=== PATIENT | male | born 1970 | race Caucasian/White ===

== ENCOUNTER 2019-01-07 18:47 | Emergency (ER) | payer MEDICAID, OTHER, SELFPAY ==
[~2019-01-07] VITALS: Ht 190.5 cm; Wt 97.3 kg
[2019-01-07 19:33] LABS: APPEARANCE, URINE CLEAR (CLEAR); BACTERIA, URINE AUTO NEGATIVE (NEGATIVE); BILIRUBIN, URINE AUTO 1+ (NEGATIVE); BLOOD, URINE BLOOD 1+ (NEGATIVE); COLOR, URINE AMBER (YELLOW); GLUCOSE, URINE (UA) AUTO 1+ mg/dL (NEGATIVE); KETONE, URINE AUTO NEGATIVE (NEGATIVE); LEUKOCYTE ESTERASE, URINE AUTO NEGATIVE (NEGATIVE); MUCUS, URINE SMALL (NEGATIVE); NITRITE, URINE AUTO NEGATIVE (NEGATIVE); PROTEIN, URINE AUTO 1+ mg/dL (NEGATIVE); RBC, URINE AUTO 3 /HPF (0-3); SQUAMOUS EPITHELIAL CELL UR AU 0 /HPF (0-6); WBC, URINE AUTO 1 /HPF (0-3)
[2019-01-07] MEDS ORDERED: ONDANSETRON 4MG/2ML VIAL (J2405) IV ONE (19:45)
[2019-01-07] MEDS ORDERED: KETOROLAC 30 MG/ML VIAL (J1885) IV ONE (19:45)
[2019-01-07 19:57] LABS: INFLUENZA A AMPLIFICATION NEGATIVE (NEGATIVE); INFLUENZA B AMPLIFICATION NEGATIVE (NEGATIVE)
[2019-01-07 20:55] LABS: HEMATOCRIT 44.9 % (42.0-52.0); HEMOGLOBIN 15.3 g/dl (13.5-17.5); MEAN CORPUSCULAR HEMOGLOBIN 29.9 pg (27.0-33.0); MEAN CORPUSCULAR HGB CONC 34.1 g/dl (32.0-36.5); MEAN CORPUSCULAR VOLUME 87.7 fl (80.0-96.0); PLATELET COUNT, AUTOMATED 137 10^3/uL (150-450); RED BLOOD COUNT 5.12 10^6/uL (4.30-6.10); WHITE BLOOD COUNT 4.7 10^3/uL (4.0-10.0)
[2019-01-07] MEDS ORDERED: diphenhydrAMINE INJ 50MG/ML VIAL (J1200) IV ONE (21:00)
[2019-01-07] MEDS ORDERED: METOCLOPRAMIDE 10 MG TAB PO ONE (21:00)
[2019-01-07] MEDS ORDERED: SUMAtriptan SUCCINATE 6 MG/0.5 ML VIAL SC ONE (21:00)
[2019-01-07 21:12] LABS: BLOOD UREA NITROGEN 18 MG/DL (7-18); CALCIUM LEVEL 8.7 MG/DL (8.5-10.1); CARBON DIOXIDE LEVEL 27 MEQ/L (21-32); CHLORIDE LEVEL 101 MEQ/L (98-107); CREATININE FOR GFR 1.28 MG/DL (0.70-1.30); GLOMERULAR FILTRATION RATE > 60.0 (>56); GLUCOSE, FASTING 96 MG/DL (70-100); POTASSIUM SERUM 4.9 MEQ/L (3.5-5.1); SODIUM LEVEL 134 MEQ/L (136-145)
[2019-01-07 21:26] LABS: ATYPICAL LYMPH 4 % (0-5); BASOPHILS 1 % (0-4); EOSINOPHILS 4 % (0-5); LYMPHOCYTES 33 % (16-52); MONOCYTES 12 % (0-8); NEUTROPHILS 46 % (35-75)
[2019-01-07 21:27] LABS: PLATELET ESTIMATE DECREASED (NORMAL)
[2019-01-07 22:12] LABS: CPK CREATINE PHOSPHOKINASE 178 U/L (39-308); MB/CK RELATIVE INDEX 1.74 (< OR =4); TROPONIN I < 0.02 NG/ML (< 0.10)
[2019-01-08 00:30] VITALS: BP 136/86
--- NOTE | 2019-01-08 05:46 | ECGEPIP ---
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
--- NOTE | 2019-01-08 08:31 | REP ---
Left ankle: Four views. History: Chronic pain and overlying skin lesion. Findings: Four views of the left ankle demonstrate anteromedial soft tissue swelling. Ankle mortise is intact. No periosteal reaction or bony erosive changes seen. No soft tissue gas or opaque foreign body noted. There is a large plantar calcaneal spur. Bones, joints, and soft tissues are otherwise unremarkable. Impression: Soft-tissue swelling anteriorly and medially just above the ankle. Large plantar calcaneal spur. Otherwise negative. Electronically Signed by Damien Aguilar MD 01/08/2019 08:22 A
== END 2019-01-08 00:21 | disposition home or self-care (01) ==
LOC: M ED 18:47
DX: D69.6 Thrombocytopenia, unspecified (principal); R80.9 Proteinuria, unspecified; E87.1 Hypo-osmolality and hyponatremia; R11.0 Nausea; R51 Headache; L98.9 Disorder of the skin and subcutaneous tissue, unspecified; M77.32 Calcaneal spur, left foot; Z72.0 Tobacco use
CPT/HCPCS: 73610; 80048; 81001; 82550; 82553; 85025; 87502; 93005; 96374; 96375; 99284; J1200; J1885; J2405

== ENCOUNTER 2019-01-10 20:31 | Emergency (ER) | payer MEDICAID, SELFPAY ==
[~2019-01-10] VITALS: Ht 190.5 cm; Wt 100.0 kg
[2019-01-10] MEDS ORDERED: ALBU17IN2 INH (22:23)
--- NOTE | 2019-01-10 22:23 | REP ---
Clinical: Cough . Comparison: 05/12/2015 . Technique: PA and lateral. Findings: The mediastinum and cardiac silhouette are normal. The lung watson are clear and without acute consolidation, effusion, or pneumothorax. The skeletal structures are intact and normal. Impression: 1. No acute cardiopulmonary process. Electronically Signed by José Larose MD 01/10/2019 10:15 P
[2019-01-10 22:32] VITALS: BP 119/81; O2SAT 97
--- NOTE | 2019-01-11 10:25 | ECGEPIP ---
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
== END 2019-01-10 22:38 | disposition home or self-care (01) ==
LOC: M ED 20:31
DX: R05 Cough (principal); R10.9 Unspecified abdominal pain; R51 Headache; F10.10 Alcohol abuse, uncomplicated; F17.210 Nicotine dependence, cigarettes, uncomplicated

== ENCOUNTER 2019-03-04 00:46 | Emergency (ER) | payer SELFPAY ==
[~2019-03-04] VITALS: Ht 190.5 cm; Wt 100.0 kg
[2019-03-04 00:46] VITALS: BP 172/92
[~2019-03-04 00:46] MED LIST: ALBU17IN2 INH
== END 2019-03-04 01:44 | disposition left against medical advice (07) ==
LOC: M ED 00:46
DX: Z53.29 Procedure and treatment not carried out because of patient's decision for other reasons (principal)

== ENCOUNTER 2019-03-15 04:45 | Observation (INO) | payer MEDICAID, SELFPAY ==
[2019-03-15] VITALS (8 sets, daily range): BP systolic 139–178; BP diastolic 92–120
[~2019-03-15] VITALS: Ht 190.5 cm; Wt 96.3 kg
[2019-03-15] MEDS ORDERED: ACETAMINOPHEN TAB 650MG DOSE (2X325MG) PO PRN (09:30)
[2019-03-15] MEDS ORDERED: ONDANSETRON 4MG/2ML VIAL (J2405) IV PRN (09:30)
[2019-03-15] MEDS ORDERED: NORCO, ANEXSIA 5/325MG TABLET (HYDROcodone/ACETAMINOPHEN) PO PRN (09:30)
[2019-03-15] MEDS: PANTOPRAZOLE 40MG TAB (PROTONIX) PO SCH (10:58)
[2019-03-15] MEDS: SENOKOT S TAB PO SCH ×2 (10:58→20:29)
[2019-03-15] MEDS: amLODIPine 10 MG TAB PO SCH (10:58)
[2019-03-15] MEDS: AUGMENTIN 875 MG TAB PO SCH ×2 (10:59→20:29)
--- NOTE | 2019-03-15 11:07 | CR.PDOC ---
General Date of Consultation: March 15, 2019 Consultation CONSULTATION REPORT FOR: Dr Cast REASON FOR CONSULTATION: Ascending AA Vascular Surgery. Dr Stoll. HPI: 48year oldM transferred from [facility] related to acute cholecystitis to the surgical service at [facility]. The pt states he does not follow with a PCP, does not take any medication at home. The pt was evaluated at [facility] 03/15/19 related to abdominal pain, nausea and vomiting. The pt had reported RUQ pain, cramping, worse with food and movement, poor appetite. No diarrhea. Vascular Surgery is consulted regarding Ascending AA. Denies any fevers, chills, weakness, fatigue, Headache, Chest Pain, Shortness of breath, cough, palpitations, abdominal pain, N/V/D or changes in bowel or bladder habits. PMHx: Uncontrolled HTN Ascending AA Overweight BMI 28.1 cholelithiasis PSHX: back surgery SOCHX: Tobacco use: 1 ppd ETOH: states 1 case of beer per month. Illicit Drugs: Denies FAMHX: Mother: Alive, unknown Father: Alive, unknown Siblings: 2 sisters Alive, well ROS: As noted in HPI, otherwise 11pt ROS of systems reviewed and remarkable only for BP at [facility] noted to be 190/100. At time of transfer 169/118. This AM 174/110. PE: GEN: 48yoM, appears stated age. Well-nourished, well developed. No acute distress. Alert and oriented x 3. Pleasant, interactive. HEENT: Normocephalic, atraumatic. Sclera are nonicteric. Conjunctiva without injection. No facial asymmetry. Moist mucous membranes. CHEST: Regular rate and rhythm, +S1, +S2 LUNGS: Clear to auscultation bilaterally. No wheezes, rales, or rhonchi. [place] thing appears symmetric and easy. ABD: Round, soft, RUQ TTP, non-distended. +Bowel sounds throughout. EXT: Pulses 2+ bilaterally dorsalis pedis and radial. No lower extremity edema appreciated. SKIN: [place], dry, warm. Capillary refill <2sec. No rashes. NEURO: Alert and oriented x 3. Cranial nerves III-XII are intact. No focal deficits appreciated. CXR 01/10/19 1. No acute cardiopulmonary process. Electronically Signed by José Larose MD 01/10/2019 10:[address] A/P cholelithiasis/cholecystitis. [facility] CTA chest 4.6 cm Ascending AA. No PE. [facility] EKG NSR 62 bpm. A&P: 1. Ascending AA. [facility] CTA chest 4.6 cm. No previous imaging available. The pt is reviewed and discussed with Dr Stoll. Surveillance would be recommended at this time. Would recommend BP control. Mgmt as per Hospitalist service. Would recommend consideration of statin therapy. Request TTE to further asses, obtain baseline. Would recommend to re asses with TTE in 6 months to determine stability, then biannually. 2. Uncontrolled HTN. No meds as outpt. Mgmt as per Hospitalist svc. 3. Cholelithiasis. Mgmt as per Surgical service. From a vascular standpoint would be able to proceed with elective cholecystectomy, if needed, once blood pressure is controlled. Thank you for your consultation. We will continue to follow along with you. Vital Signs/I&O Vital Signs Date Time Temp Pulse Resp B/P (MAP) Pulse Ox O2 Delivery O2 Flow Rate FiO2 03/15/19 06:05 97.7 77 18 174/110 (131) 60 Laboratory Data Labs 24H no new labs available Allergies Coded Allergies: No Known Allergies (Verified , 01/10/19) Home Medications No Active Prescriptions or Reported Meds Luiza Lofton March 15, 2019 09:11
--- NOTE | 2019-03-15 17:54 | HPE ---
DATE OF ADMISSION: 03/15/2019 REASON FOR ADMISSION: Right upper quadrant pain, acute cholecystitis, cholelithiasis. HISTORY OF THE PRESENT ILLNESS: The patient is a 48-year-old male. He has had problems with right upper quadrant pain after meals for the past 2 weeks. He was initially seen here, discharged home. He had pains again, a few days later he went to the [place] [facility]. They transferred him to [place] where he was admitted and watched for 2 days and then discharged home again. This was about 8 days ago. When he was discharged from there, he had no follow up with any surgeons, no plan for any surgery. He was not discharged on any medications. Apparently he did have issues with hypertension and that is why they had held off on doing his surgery during that last inpatient stay, but again, he was never set up with any followup for a primary and no blood pressure medications or antibiotics upon discharge. Since then, he has had about two more days of pain in the right upper quadrant. This last episode started yesterday after having some [employer] [place]. He was never advised to stay on low-cholesterol, low-fat diet, as well, so that was likely the result of his symptoms starting yesterday. He went back to [facility] (ER), had elevated liver enzymes; however, they were improved from the week prior. He also has a CT scan still showing large stones as well as wall thickening and fluid around the gallbladder, concerning for acute cholecystitis. They also did a CTA during this hospitalization at [place], which showed an ascending thoracic aortic aneurysm at 4.6 cm, which is a new finding for him and because of his symptoms, he was transferred here and [facility] for [facility]olecystitis. Currently his pain is completely resolved. He has no nausea, vomiting. No fevers or chills. Pain is gone. He only had the pain after his meal yesterday, and he only gets it a couple times a week. No fevers. No changes in bowel movements. No trauma to the abdomen. No changes in medications. He does apparently have a history of hypertension and that he has not been on any medications for, and has never been officially diagnosed either since he does not follow up with any primary. PAST MEDICAL HISTORY: Hypertension. Cholelithiasis. Back pain. PAST SURGICAL HISTORY: Lumbar back surgery. ALLERGIES: None. HOME MEDICATIONS: None. SOCIAL HISTORY: He smokes a pack a day and drinks socially. Denies any drugs. FAMILY HISTORY: Noncontributory. REVIEW OF SYSTEMS: Pertinent positives and negatives as stated in the history of the present illness. PHYSICAL EXAMINATION: General: Alert and oriented times three. No acute distress. Vital Signs: Temperature 98, pulse 63, respirations 18, blood pressure 178/120. HEENT: Pupils equally round and react to light and accommodation. Heart: S1, S2, regular rate and rhythm. Lungs: Clear to auscultation bilaterally. Abdomen: Soft, nontender, nondistended. No ventral hernias. Extremities: No clubbing, cyanosis or edema. LABORATORY: Labs were reviewed from [facility], and there is elevated AST, ALT. Alkaline phosphatase and bilirubin are within normal limits as well as a normal white count. IMAGING STUDIES: CT scan does show thickened gallbladder wall with fluid around it and two large calcified gallstones. ASSESSMENT AND PLAN: The patient is a 48-year-old male admitted from [facility] and transferred here due to acute cholecystitis with cholelithiasis. He also was found to have hypertension and an ascending thoracic aortic aneurysm at 4.6 cm. I have asked the hospitalists to be on consult to get him started on some blood pressure management. Also, the hospitalist has requested the vascular surgeon to evaluate and give recommendations as far as the aneurysm is concerned. At this point, his aneurysm is not large enough to require any type of surgical intervention. We will keep his blood pressure controlled and likely repeat imaging in about 6 months. During this stay, we will get a transesophageal echocardiogram (SARITHA) to further evaluate the aortic root and to use as a baseline for further imaging. As far as the cholecystitis is concerned, he will require surgery. I explained to him that he has had this going on for about 2 weeks now and has not had proper treatment for it yet. Therefore, we will plan to get him on antibiotics and low-fat, low-cholesterol diet. If he can tolerate that for a couple of weeks to allow the inflammation to subside, then we will plan for elective surgery outpatient in a couple of weeks. However, if the pain does not improve over the next 24 hours, and he is not able to tolerate a diet, then we will plan for more urgent procedure with the risk of this turning into a complicated surgery. He understands that. We placed him on a low-cholesterol diet today. I will see how he is doing in the morning. If his pain is okay and he is tolerating a diet in the morning, I will discharge him home. If he is having significant pains, then we will keep him nothing by mouth after midnight and plan for surgery tomorrow.
--- NOTE | 2019-03-15 19:14 | CR.PDOC ---
General Date of Consultation: March 15, 2019 Referring Provider: CARLITA NOVAK MD Consultation REASON FOR CONSULTATION/CHIEF COMPLAINT: Management of hypertension. HISTORY OF PRESENT ILLNESS: . 48-year-old male was admitted from the [facility] due to acute cholecystitis. The patient states that he was recently admitted at [facility] for 4 days for treatment of the same, and return was recommended to have surgery done in a few weeks and follow-up outpatient. However, the patient's pain worsened and he has been transferred here for further surgical evaluation. During workup, a CTA of the chest revealed a 4.6 cm ascending aortic aneurysm. The patient denies any complaints of fevers, chills, chest pain, palpitations, abdominal discomfort, shortness of breath, or any nausea/vomit ing/diarrhea. The hospitalist team has been consulted to aid in the medical management of the patient's hypertension, as the patient has not followed with a primary care physician, and is not on any medications. ALLERGIES: Please see below. HOME MEDICATIONS: Please see below. PAST MEDICAL HISTORY: As noted in HPI PAST SURGICAL HISTORY: L5-S1 laminectomy/discectomy in 1999 SOCIAL HISTORY: Has smoked 1 pack per day of tobacco for the past 30+ years Occasionally drinks alcohol Occasionally snorts methamphetamines every few weeks REVIEW OF SYSTEMS: 10 point review of systems negative unless otherwise specified in HPI PHYSICAL EXAMINATION: VITAL SIGNS: Please see below. GENERAL APPEARANCE: . Awake, alert, in no acute distress HEENT: . Normocephalic, atraumatic RESPIRATORY: . Clear to auscultation bilaterally CARDIOVASCULAR: . Normal rate, normal S1, S2 ABDOMEN: . Soft, nontender, nondistended EXTREMITIES: . No erythema, no tenderness LABORATORY DATA: Please see below. ASSESSMENT/PLAN: Uncontrolled HTN Patient is not on any medications as an outpatient We will start the patient on Norvasc 10mg, and add other anti-hypertensives depending on the patient's response Patient counseled at length about the need to adhere to a 2 g low sodium diet, medications as prescribed, and to follow-up with a primary care physician regularly to monitor his blood pressure. We will help set the patient up with a primary care physician provider as well. Ascending aortic aneurysm CT angiogram of the chest here revealed an ascending aortic aneurysm of 4.6 cm No previous imaging available Patient is asymptomatic at this time. 2-D echocardiogram ordered The patient will need better blood pressure control moving forward We will defer further management as per vascular surgery Cholecystitis Augmentin ordered as per general surgery The patient has been started on a low-fat, low-cholesterol diet Plans for Surgical intervention in the future as per Dr. Cast DVT prophylaxis OOB, Ambulation Vital Signs/I&O Vital Signs Date Time Temp Pulse Resp B/P (MAP) Pulse Ox O2 Delivery O2 Flow Rate FiO2 03/15/19 16:00 99.0 73 17 140/98 (112) 94 Allergies Coded Allergies: No Known Allergies (Verified , 01/10/19) Home Medications No Active Prescriptions or Reported Meds CARLITA NOVAK MD March 15, 2019 19:14
--- NOTE | 2019-03-15 22:58 | ECHO ---
DATE OF PROCEDURE: 03/15/2019 REFERRING INDIVIDUAL: Luiza Lofton, Physician [employer] Salesperson INDICATION: Thoracic aortic aneurysm without rupture. HEIGHT: 185 cm WEIGHT: 102 kg 2D MEASUREMENTS: Aortic root at the sinus of Valsalva: 3.9 cm Proximal ascending aorta: 4.1 cm Ventricular septum: 1.36 cm Posterior wall: 1.61 cm Left ventricle diastole: 4.0 cm Left atrium: 3.6 cm Aortic annulus: 2.3 cm Inferior vena cava: 1.8 cm (more than 50% respiratory variation). CVP estimated to be 5-10 mmHg. DOPPLER MEASUREMENTS: Mild aortic regurgitation. No aortic stenosis. Aortic valve velocity: 131 cm/s LVOT velocity: 85.7 cm/s Very mild mitral regurgitation. Mitral E velocity: 66.0 cm/s Mitral A velocity: 80.5 cm/s Mitral deceleration time: 264 ms No tricuspid regurgitation. Estimated pulmonary artery systolic pressure: 31 mmHg. MITRAL ANNULAR TISSUE DOPPLER: E prime septal: 5.2 cm/s E prime lateral: 5.1 cm/s DESCRIPTION: Rhythm was sinus. Image quality was fair. No pericardial effusion. This was a 2D, M-mode, color flow Doppler and pulse wave Doppler examination and included mitral annular tissue Doppler. CONCLUSIONS: 1. Mild dilatation of the aortic root at the level of the sinus of Valsalva (3.9 cm) and proximal ascending aorta (4.1 cm). No coarctation of the aorta. 2. Moderate concentric left ventricle hypertrophy. Normal regional left ventricular (LV) wall motion and wall thickening. Normal LV systolic function. Left ventricular ejection fraction (LVEF) 60% by visual estimate. Grade 1 LV diastolic dysfunction (impaired relaxation filling pattern). 3. Mild aortic valve sclerosis of a 3-cusp aortic valve. Mild aortic regurgitation. 4. Mild mitral annular calcification. Very mild mitral regurgitation. 5. Otherwise normal appearing echocardiogram Doppler findings. ADDITIONAL COMMENTS AND RECOMMENDATIONS: Suggest a followup echocardiogram Doppler in 1 year.
[2019-03-16 05:54] LABS: HEMATOCRIT 44.4 % (42.0-52.0); HEMOGLOBIN 15.3 g/dl (13.5-17.5); MEAN CORPUSCULAR HEMOGLOBIN 30.7 pg (27.0-33.0); MEAN CORPUSCULAR HGB CONC 34.5 g/dl (32.0-36.5); PLATELET COUNT, AUTOMATED 208 10^3/uL (150-450); RED BLOOD COUNT 4.99 10^6/uL (4.30-6.10); WHITE BLOOD COUNT 5.5 10^3/uL (4.0-10.0)
[2019-03-16 06:00] VITALS: BP 132/91
[2019-03-16 06:12] LABS: ALBUMIN 3.2 GM/DL (3.2-5.2); ALT/SGPT 374 U/L (12-78); BILIRUBIN,TOTAL 0.5 MG/DL (0.2-1.0); BLOOD UREA NITROGEN 19 MG/DL (7-18); CALCIUM LEVEL 9.2 MG/DL (8.5-10.1); CARBON DIOXIDE LEVEL 26 MEQ/L (21-32); CHLORIDE LEVEL 105 MEQ/L (98-107); CREATININE FOR GFR 1.18 MG/DL (0.70-1.30); GLOMERULAR FILTRATION RATE > 60.0 (>56); GLUCOSE, FASTING 86 MG/DL (70-100); POTASSIUM SERUM 4.1 MEQ/L (3.5-5.1); SODIUM LEVEL 137 MEQ/L (136-145); TOTAL PROTEIN 8.4 GM/DL (6.4-8.2)
[2019-03-16 08:14] VITALS: BP 148/90
[2019-03-16] MEDS: PANTOPRAZOLE 40MG TAB (PROTONIX) PO SCH (08:14)
[2019-03-16] MEDS: amLODIPine 10 MG TAB PO SCH (08:14)
[2019-03-16] MEDS: AUGMENTIN 875 MG TAB PO SCH (08:14)
[2019-03-16] MEDS: SENOKOT S TAB PO SCH (08:14)
--- NOTE | 2019-03-16 09:46 | IPNPDOC ---
Date Seen The patient was seen on 03/16/19. Progress Note CONSULTATION REPORT FOR: Dr Cast REASON FOR CONSULTATION: Ascending AA Vascular Surgery. Dr Stoll. HPI: 48year oldM transferred from [facility] related to acute cholecystitis to the surgical service at [facility]. The pt states he does not follow with a PCP, does not take any medication at home. The pt was evaluated at [facility] 03/15/19 related to abdominal pain, nausea and vomiting. The pt had reported RUQ pain, cramping, worse with food and movement, poor appetite. No diarrhea. Vascular Surgery is consulted regarding Ascending AA. Denies any fevers, chills, weakness, fatigue, Headache, Chest Pain, Shortness of breath, cough, palpitations, abdominal pain, N/V/D or changes in bowel or bladder habits. PMHx: Uncontrolled HTN Ascending AA Overweight BMI 28.1 cholelithiasis PSHX: back surgery SOCHX: Tobacco use: 1 ppd ETOH: states 1 case of beer per month. Illicit Drugs: Denies FAMHX: Mother: Alive, unknown Father: Alive, unknown Siblings: 2 sisters Alive, well ROS: As noted in HPI, otherwise 11pt ROS of systems reviewed and remarkable only for BP at [facility] noted to be 190/100. At time of transfer 169/118. This AM 174/110. PE: GEN: 48yoM, appears stated age. Well-nourished, well developed. No acute distress. Alert and oriented x 3. Pleasant, interactive. HEENT: Normocephalic, atraumatic. Sclera are nonicteric. Conjunctiva without injection. No facial asymmetry. Moist mucous membranes. CHEST: Regular rate and rhythm, +S1, +S2 LUNGS: Clear to auscultation bilaterally. No wheezes, rales, or rhonchi. Breathing appears symmetric and easy. ABD: Round, soft, RUQ TTP, non-distended. +Bowel sounds throughout. EXT: Pulses 2+ bilaterally dorsalis pedis and radial. No lower extremity edema appreciated. SKIN: [place], dry, warm. Capillary refill <2sec. No rashes. NEURO: Alert and oriented x 3. Cranial nerves III-XII are intact. No focal deficits appreciated. CXR 01/10/19 1. No acute cardiopulmonary process. Electronically Signed by José Larose MD 01/10/2019 10:[address] [facility] [address] A/P cholelithiasis/cholecystitis. [facility] CTA chest 4.6 cm Ascending AA. No PE. [facility] EKG NSR 62 bpm. TTE 03/15/19 CONCLUSIONS: 1. Mild dilatation of the aortic root at the level of the sinus of Valsalva (3.9 cm) and proximal ascending aorta (4.1 cm). No coarctation of the aorta. 2. Moderate concentric left ventricle hypertrophy. Normal regional left ventricular (LV) wall motion and wall thickening. Normal LV systolic function. Left ventricular ejection fraction (LVEF) 60% by visual estimate. Grade 1 LV diastolic dysfunction (impaired relaxation filling pattern). 3. Mild aortic valve sclerosis of a 3-cusp aortic valve. Mild aortic regurgitation. 4. Mild mitral annular calcification. Very mild mitral regurgitation. 5. Otherwise normal appearing echocardiogram Doppler findings. ADDITIONAL COMMENTS AND RECOMMENDATIONS: Suggest a followup echocardiogram Doppler in 1 year. A&P: 1. Ascending AA. [facility] CTA chest 4.6 cm. TTE 03/15/19 Mild dilatation of the aortic root at the level of the sinus of Valsalva (3.9 cm) and proximal ascending aorta (4.1 cm). No previous imaging available. The pt is reviewed and discussed with Dr Stoll. Surveillance would be recommended at this time. Would recommend BP control. Mgmt as per Hospitalist service. Would recommend consideration of statin therapy. TTE as baseline as above. Would recommend to re asses with TTE in 6 months to determine stability, then biannually. 2. Uncontrolled HTN. No meds as outpt. Mgmt as per Hospitalist svc. 3. Cholelithiasis. Mgmt as per Surgical service. From a vascular standpoint would be able to proceed with elective cholecystectomy, if needed, once blood pressure is controlled. VS, I&O, 24H, Fishbone Vital Signs/I&O Vital Signs Date Time Temp Pulse Resp B/P (MAP) Pulse Ox O2 Delivery O2 Flow Rate FiO2 03/16/19 08:14 88 148/90 03/16/19 06:00 96.9 16 93 I&O- Last 24 Hours up to 6 AM 03/16/19 06:00 Intake Total 1090 ml Output Total 800 ml Balance 290 ml Laboratory Data 24H LABS Laboratory Tests 2 03/16/19 05:13: Nucleated Red Blood Cells % (auto) 0.0, Anion Gap 6L, Glomerular Filtration Rate > 60.0, Blood Urea Nitrogen 19H, Creatinine 1.18, Sodium Level 137, Potassium Level 4.1, Chloride Level 105, Carbon Dioxide Level 26, Calcium Level 9.2, Aspartate Amino Transf (AST/SGOT) 135H, Alanine Aminotransferase (ALT/SGPT) 374H, Alkaline Phosphatase 55, Total Bilirubin 0.5, Total Protein 8.4H, Albumin 3.2, Albumin/Globulin Ratio 0.62L CBC/BMP Laboratory Tests 03/16/19 05:13 Red Blood Count 4.99, Mean Corpuscular Volume 89.0, Mean Corpuscular Hemoglobin 30.7, Mean Corpuscular Hemoglobin Concent 34.5, Red Cell Distribution Width 13.9, Calcium Level 9.2, Aspartate Amino Transf (AST/SGOT) 135 H, Alanine Aminotransferase (ALT/SGPT) 374 H, Alkaline Phosphatase 55, Total Bilirubin 0.5, Total Protein 8.4 H, Albumin 3.2 Luiza Lofton March 16, 2019 09:46
[2019-03-16] MEDS ORDERED: AMLO10TA5 PO (10:23)
[2019-03-16] MEDS ORDERED: AMOX875T2 PO (10:23)
[2019-03-16 11:44] LABS: HEPATITIS B SURFACE ANTIGEN NEGATIVE (NEGATIVE)
--- NOTE | 2019-03-16 11:44 | IPNPDOC ---
Subjective Date Seen The patient was seen on 03/16/19. Subjective Chief Complaint/HPI Patient seen and examined at the bedside. No acute overnight events noted. Patient denies any acute complaints at this time. Objective Physical Examination General Exam: Positive: Alert, Cooperative, No Acute Distress ENT Exam: Positive: Atraumatic, Mucous membr. moist/pink Neck Exam: Negative: JVD Chest Exam: Positive: Clear to auscultation, Normal air movement Heart Exam: Positive: Rate Normal, Normal S1, Normal S2 Abdomen Exam: Positive: Soft; Negative: Tenderness Extremity Exam: Negative: Tenderness, Swelling Psych Exam: Positive: Oriented x 3 Assessment /Plan Plan/VTE VTE Prophylaxis Ordered?: Yes Plan Uncontrolled HTN, resolved The patient's blood pressure has responded well to Norvasc 10 mg daily, and the patient will be discharged home with the same. Patient counseled at length about the need to adhere to a 2 g low sodium diet, medications as prescribed, and to follow-up with a primary care physician regularly to monitor his blood pressure. The patient has been set up with a primary care physician provider as well. Ascending aortic aneurysm CT angiogram of the chest here revealed an ascending aortic aneurysm of 4.6 cm No previous imaging available Patient is asymptomatic at this time. 2-D echocardiogram notable for 4.1 cm ascending aortic aneurysm. Grade 1 diastolic dysfunction. The patient will need better blood pressure control moving forward Further management as per vascular surgery Cholecystitis Augmentin ordered as per general surgery The patient has successfully tolerated a low-fat, low-cholesterol diet Plans for Surgical intervention in the future as per Dr. Cast Elevated liver function tests Possibly secondary to underlying fatty liver However, given the patient's history of drug abuse, a hepatitis panel has been ordered The patient is likely to be discharged home today by surgery. The patient has been counseled to follow-up with his primary care physician for follow-up of these labs. He is also to follow-up with a PCP for liver ultrasound testing. Elevated AST/ALT was also noted on previous lab work from the [facility]. The importance of following up with these labs have been discussed extensively with the patient, and he has verbalized understanding of the same. DVT prophylaxis OOB, Ambulation VS, I&O, 24H, Fishbone Vital Signs/I&O Vital Signs Date Time Temp Pulse Resp B/P (MAP) Pulse Ox O2 Delivery O2 Flow Rate FiO2 03/16/19 08:14 88 148/90 03/16/19 06:00 96.9 16 93 I&O- Last 24 Hours up to 6 AM 03/16/19 06:00 Intake Total 1090 ml Output Total 800 ml Balance 290 ml Laboratory Data 24H LABS Laboratory Tests 2 03/16/19 05:13: Nucleated Red Blood Cells % (auto) 0.0, Anion Gap 6L, Glomerular Filtration Rate > 60.0, Blood Urea Nitrogen 19H, Creatinine 1.18, Sodium Level 137, Potassium Level 4.1, Chloride Level 105, Carbon Dioxide Level 26, Calcium Level 9.2, Aspartate Amino Transf (AST/SGOT) 135H, Alanine Aminotransferase (ALT/SGPT) 374H, Alkaline Phosphatase 55, Total Bilirubin 0.5, Total Protein 8.4H, Albumin 3.2, Albumin/Globulin Ratio 0.62L CBC/BMP Laboratory Tests 03/16/19 05:13 Red Blood Count 4.99, Mean Corpuscular Volume 89.0, Mean Corpuscular Hemoglobin 30.7, Mean Corpuscular Hemoglobin Concent 34.5, Red Cell Distribution Width 13.9, Calcium Level 9.2, Aspartate Amino Transf (AST/SGOT) 135 H, Alanine Aminotransferase (ALT/SGPT) 374 H, Alkaline Phosphatase 55, Total Bilirubin 0.5, Total Protein 8.4 H, Albumin 3.2 CALRITA NOVAK MD March 16, 2019 11:44
[2019-03-16 12:11] LABS: HEPATITIS C VIRUS ABY INDEX 0.1 INDEX (<0.8)
[2019-03-16 12:12] LABS: HEPATITIS B CORE ANTIBODY IGM NEGATIVE (NEGATIVE)
[2019-03-16 14:27] LABS: HEPATITIS A ANTIBODY IGM POSITIVE (NEGATIVE)
--- NOTE | 2019-03-16 18:20 | DSES ---
DATE OF ADMISSION: 03/15/2019 DATE OF DISCHARGE: 03/16/2019 ADMISSION DIAGNOSIS: Acute cholecystitis, hypertension and ascending thoracic aortic aneurysm. DISCHARGE DIAGNOSIS: Acute cholecystitis, hypertension and ascending thoracic aortic aneurysm. HOSPITAL COURSE: The patient is a 48-year-old male who was transferred from [facility] due to right upper quadrant pain. He has history of acute cholecystitis that was poorly treated a couple of weeks ago. He had recurrence of symptoms and due to the pain, he was transferred here since they had no beds available there. His acute cholecystitis is complicated by the fact that he has no medical care outside of this. He has never seen a primary. He has newly diagnosed hypertension, as well as an ascending thoracic aortic aneurysm, both of which need to be evaluated prior to him proceed with any surgical intervention for his cholecystitis. He was transferred here, admitted to [place] I kept him nothing by mouth initially. By the time I saw him in person, his pain was completely resolved. I had medicine consult. They started him on Norvasc for his blood pressure, which brought that back to an appropriate level. Also had a vascular consult with a transthoracic echocardiogram to evaluate the thoracic aortic aneurysm (TAA). He is stable from a thoracic standpoint to undergo surgical intervention and they recommend repeat echocardiogram in six months to see if the aneurysm is stable or not; however, at this time, due to the inflammation around his gallbladder, recommendation is to send him home, continue with a low-fat, low-cholesterol diet, as well as the amoxicillin and schedule this as an outpatient once he gets established with a primary physician and has proper medical clearance for surgery. He understands that the risks involved with doing an emergency surgery today are high and he is in agreement with having this done as an outpatient. He will be discharged home today with amoxicillin for seven days. He has also started on amlodipine 10 mg daily and has been given the name of a primary to be established with. He will follow with me in the office this week to schedule surgery and once he is cleared, we will proceed with a procedure. edited: 03/19/2019 0716 tkf IRENAD
== END 2019-03-16 11:45 | disposition home or self-care (01) ==
LOC: UNDOADMOB 06:02 → INTOOBSV 06:02 → M PCU 06:02 → M MSPAV 21:10 → M PCU 21:10 → M MSPAV 21:10
PROVIDERS: ADMIT Surgery; ATTEND Surgery
DX: K81.0 Acute cholecystitis (principal); I10 Essential (primary) hypertension; I71.2 Thoracic aortic aneurysm, without rupture; F17.210 Nicotine dependence, cigarettes, uncomplicated

== ENCOUNTER 2019-03-30 01:26 | Day surgery (SDC) | payer MEDICAID ==
[~2019-03-30] VITALS: Ht 190.5 cm; Wt 97.2 kg
[2019-03-30] VITALS (9 sets, daily range): BP systolic 111–182; BP diastolic 59–123
[~2019-03-30 01:26] MED LIST changes: +AMLO10TA5 PO; +AMOX875T2 PO
[2019-03-30 02:04] LABS: BASO # 0.1 10^3/uL (0.0-0.2); BASO % 1.4 % (0.0-1.0); EOS # 0.8 10^3/uL (0.0-0.50); EOS % 9.6 % (0.0-3.0); HEMATOCRIT 43.4 % (42.0-52.0); LYMPH % 25.9 % (24.0-44.0); MEAN CORPUSCULAR HEMOGLOBIN 31.6 pg (27.0-33.0); MEAN CORPUSCULAR HGB CONC 34.6 g/dl (32.0-36.5); MEAN CORPUSCULAR VOLUME 91.4 fl (80.0-96.0); MONO # 0.8 10^3/uL (0.0-0.8); MONO % 9.8 % (0.0-5.0); NEUTROPHILS # 4.1 10^3/uL (1.8-7.7); NEUTROPHILS % 52.5 % (36.0-66.0); PLATELET COUNT, AUTOMATED 173 10^3/uL (150-450); RED BLOOD COUNT 4.75 10^6/uL (4.30-6.10); WHITE BLOOD COUNT 7.8 10^3/uL (4.0-10.0)
[2019-03-30] MEDS ORDERED: ONDANSETRON 4MG/2ML VIAL (J2405) IV ONE (02:15)
[2019-03-30] MEDS ORDERED: NS 1,000 ML IV ONE (02:30)
[2019-03-30] MEDS ORDERED: HYDROMORPHONE HCL 0.5 MG/ 0.5 ML SYRINGE (J1170 PER 1) IV ONE ×2 (02:30→08:15)
[2019-03-30 02:38] LABS: ALBUMIN 3.3 GM/DL (3.2-5.2); ALT/SGPT 325 U/L (12-78); BILIRUBIN,DIRECT 0.1 MG/DL (0.0-0.2); BILIRUBIN,TOTAL 0.4 MG/DL (0.2-1.0); BLOOD UREA NITROGEN 21 MG/DL (7-18); CALCIUM LEVEL 8.8 MG/DL (8.5-10.1); CARBON DIOXIDE LEVEL 25 MEQ/L (21-32); CHLORIDE LEVEL 106 MEQ/L (98-107); CREATININE FOR GFR 1.29 MG/DL (0.70-1.30); GLOMERULAR FILTRATION RATE > 60.0 (>56); GLUCOSE, FASTING 104 MG/DL (70-100); LIPASE 178 U/L (73-393); POTASSIUM SERUM 4.1 MEQ/L (3.5-5.1); SODIUM LEVEL 140 MEQ/L (136-145); TOTAL PROTEIN 8.5 GM/DL (6.4-8.2)
[2019-03-30] MEDS ORDERED: diphenhydrAMINE INJ 50MG/ML VIAL (J1200) IV STA (02:59)
[2019-03-30] MEDS ORDERED: HALOPERIDOL 5 MG/ML VIAL (J1630) IV STA (02:59)
[2019-03-30] MEDS ORDERED: MORPHINE 10 MG/ML 1ML VIAL (J2270) IV ONE (03:30)
[2019-03-30] MEDS ORDERED: cloNIDine 0.1 MG TAB PO ONE (04:15)
[2019-03-30] MEDS ORDERED: amLODIPine 10 MG TAB PO ONE (05:30)
[2019-03-30] MEDS ORDERED: AMLO10TA5 PO (07:29)
--- NOTE | 2019-03-30 08:12 | REP ---
Portable chest x-ray: Single view. History: Abdomen pain. Comparison study: January 10, 2019. Findings: There are increased lung markings in the left base laterally consistent with an early infiltrate. The pleural angles are sharp. Lung watson are otherwise clear. Heart size is normal. Pulmonary vasculature is not increased. Impression: Infiltrate in the left base laterally question pneumonia. Otherwise no acute disease. Electronically Signed by Damien Aguilar MD 03/30/2019 08:03 A
[2019-03-30] MEDS ORDERED: PANTOPRAZOLE 40MG INJ (PROTONIX) (C9113) IV SCH (09:00)
[2019-03-30] MEDS: LR 1,000 ML IV SCH ×2 (09:14→17:14)
[2019-03-30] MEDS ORDERED: MORPHINE 4 MG/ML 1ML VIAL/SYRINGE (J2270) IV PRN (09:15)
[2019-03-30] MEDS ORDERED: KETOROLAC 30 MG/ML VIAL (J1885) IV PRN (09:15)
[2019-03-30] MEDS ORDERED: ONDANSETRON 4MG/2ML VIAL (J2405) IV PRN (09:15)
[2019-03-30] MEDS ORDERED: METOCLOPRAMIDE INJ 10MG/2ML VIAL (J2765) IV PRN ×2 (09:15→20:45)
--- NOTE | 2019-03-30 09:49 | REP ---
Right upper quadrant sonography: Repeat dictation. History: Evaluate gallbladder. Preliminary report is provided at the time of exam by [facility]. Findings: Scanning through right upper quadrant of the abdomen demonstrates tenderness to scanning over the distended 11.3 cm gallbladder. There is a possible stone imbedded in the neck of the gallbladder. Sludge is seen in the gallbladder lumen. Gallbladder wall is not thickened measuring 0.3 cm. Common bile duct is normal measuring 0.4 cm in diameter. No focal liver lesion is seen. There is evidence of fatty infiltration. Limited views of the pancreas show no abnormality. There is no evidence of ascites or right renal abnormality. The right kidney measures 11.3 x 5.3 x 5.7 cm. Impression: Sludge and question gallbladder neck stone. Gallbladder distension and tenderness to scanning. Electronically Signed by Damien Aguilar MD 03/30/2019 03:05 P
--- NOTE | 2019-03-30 10:17 | HPE ---
DATE OF ADMISSION: 03/30/2019 ADMISSION DIAGNOSIS: Cholelithiasis and acute cholecystitis. HISTORY OF PRESENT ILLNESS: The patient is a 48-year-old man with a recent history of cholelithiasis with biliary colic and possible acute cholecystitis. He had been admitted on March [address] Cast for right upper quadrant pain with a CT scan from [facility] showing a thickened gallbladder wall with some pericholecystic fluid and some calcified gallstones. He was treated with antibiotics. During that hospital stay, he underwent an echocardiogram to evaluate possible mild enlargement of his proximal thoracic aorta. Several weeks before that, he had been seen at the [facility] emergency department and transferred to [place] where he was observed for 2 days. On discharge from [facility] on March 16, he was provided a prescription for some amlodipine for blood pressure as well as a prescription for Augmentin for possible acute cholecystitis. He was to follow up with Dr. Cats in the office to arrange elective cholecystectomy. The patient returned to the emergency department this morning at approximately 1:30. He complained of pain beginning at about 9:00 p.m. on the with some associated nausea and vomiting. The pain was located in the epigastrium in the right subcostal area. In the emergency department, the pain did not resolve. He received several doses of Dilaudid and morphine. Laboratory studies showed some slight elevations of the AST and ALT as had been noted on March 16. A gallbladder ultrasound was performed which showed a possible stone in the gallbladder neck, but no significant gallbladder wall thickening. He has persistent tenderness and is now being admitted for management of what appears to be acute cholecystitis from cholelithiasis. ALLERGIES: The patient denies any known medication allergies. MEDICATIONS: Only amlodipine 10 mg p.o. daily MEDICAL HISTORY: He has a history of cholelithiasis and hypertension. He had back pain. SURGICAL HISTORY: Significant for a lumbar laminectomy and diskectomy in 1999. In 2005, he had undergone surgical treatment of some lower extremity varicose veins. SOCIAL HISTORY: The patient reports smoking half a pack of cigarettes a day. He reports that he drinks alcohol occasionally. The patient is not currently working. FAMILY HISTORY: Negative with no history of significant inheritable conditions. REVIEW OF SYSTEMS: The patient denies any history of chest pain or palpitations. He has no cough, wheezing or sputum production. He has not been having any abdominal pain over the last 10 days to 2 weeks since his recent discharge from the hospital, until yesterday evening. He denies any fevers or chills. He has not noticed any jaundice or dark urine or acholic stools. He has been voiding without difficulty. He denies any bone or joint issues. He has no history of deep vein thrombosis (DVT) or pulmonary embolus. There is no history of seizure or stroke. PHYSICAL EXAMINATION: The patient is a fairly fit appearing pleasant middle-aged man appearing somewhat uncomfortable but also quite tired. The skin is warm and dry. Sclerae are anicteric. Neck is supple, without mass or bruit. Heart exam shows a regular rate and rhythm. The lungs are clear to auscultation. The abdomen is flat. There are no evident scars. He does have several tattoos over the chest. He has bowel sounds present. There is tenderness to percussion in the epigastrium on the right side of the midline and extending beneath the medial aspect of the right subcostal region. There is no mass appreciated. The remainder of the abdomen is soft with some moderate to marked tenderness in the medial aspect of the right subcostal area. There is no sign of hernia. Lower extremities are without any edema and he has palpable radial and pedal pulses. LABORATORY STUDIES: Include a CBC showing a white count of 8000, hemoglobin of 15, hematocrit of 43, and a platelet count of 173,000. Differential count shows 53% neutrophils, 26% lymphocytes, 10% monocytes, and 10% eosinophils. Chemistry profile shows normal electrolytes with a BUN of 21, creatinine 1.3 and a glucose of 104. Total and direct bilirubins are normal. AST is 108 with an ALT of 325 and these are similar to March 16 when they were 135 and 374 respectively. The alkaline phosphatase is normal at 59. Lipase is 178. He had a urinalysis that was not suggestive of a urinary tract infection. His ultrasound of the abdomen revealed gallbladder sludge and the question of a gallbladder neck stone. The gallbladder was distended and there was tenderness noted on scanning. A chest x-ray showed what appeared to be clear lung watson. IMPRESSION: 1. Cholelithiasis and acute cholecystitis. 2. Hypertension. 3. Mild proximal thoracic aortic dilation at 4.1 cm by echocardiogram two weeks ago. PLAN: The patient will be admitted and kept nothing by mouth (n.p.o.). We will plan on proceeding with a laparoscopic cholecystectomy later today. He will receive Zosyn for antibiotic coverage. He has been by his report pain-free basically since leaving the hospital about 2 weeks ago and has now a new onset of pain last evening. This has not resolved after approximately 12 hours of pain and would be consistent with acute cholecystitis. He was counseled for a laparoscopic cholecystectomy and desires to proceed. I anticipate this can take place later in the afternoon on the . He did receive additional blood pressure medication this morning in the emergency department. He will be given pain medications as necessary prior to surgery. NENA
[2019-03-30] MEDS: PIPERACILLIN/TAZOBACTAM SOD 3.375 GM in D5W MINI-BAG PLUS 50 ML IV SCH ×3 (11:20→21:45)
[2019-03-30] MEDS: NICOTINE 21MG/24HR 1 EA TRANSDERMAL TD SCH (12:58)
[2019-03-30] MEDS ORDERED: NITROGLYCERIN 2% OINT 1 GM *U/D* PKT TOP ONE (13:00)
[2019-03-30] MEDS ORDERED: cloNIDine 0.2 MG TAB PO ONE (13:00)
--- NOTE | 2019-03-30 13:24 | ECGEPIP ---
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
--- NOTE | 2019-03-30 13:48 | HPEPDOC ---
General Date of Admission 03/30/19 Date of Service: Mar 30, 2019 Chief Complaint The patient is a 48-year-old male admitted with a reason for visit of Acute Cholecytstitis Due To Biliary Calculus. Source: Patient, Family, Old records Severity: Moderate Associated Symptoms: Nausea History of Present Illness Consultation Report Consultation requested by Dr Ramirez Reason for consult: Uncontrolled blood pressure. HPI :48 year old male recently diagnosed with hypertension , smoker , thoracic aortic aneurysm, admitted to the hospital for acute cholecystitis under surgical service and hospitalist has been consulted for uncontrolled hypertension. Patient presented to the ED for right upper quadrant pain constant in nature and intermittently colicky 10/10 with no radiation. The pain was associated with nausea. Patient was admitted for acute cholecystitis and planned for surgery later today. Home Medications Scheduled Amlodipine Besylate (Amlodipine Besylate) 10 Mg Tablet, 10 MG PO DAILY, (Reported) Allergies Coded Allergies: No Known Allergies (Verified , 01/10/19) Past Medical History Medical History Hypertension Surgical History None Family History Significant Family History: Diabetes (mother), Hypertension (mother) Social History * Smoker: current smoker, greater than 1 pack/day Alcohol: occationally (once a month heavy) Drugs: denies A-FIB/CHADSVASC A-FIB History Current/History of A-Fib/PAF?: No Review of Systems Constitutional: Denies: Chills, Fever, Night Sweats Eyes: Denies: Pain, Vision change ENT: Denies: Head Aches, Ear Pain, Dysphagia Skin: Denies: Rash, Lesions, Breakdown Pulmonary: Denies: Dyspnea, Cough Cardiovascular: Denies: Chest Pain, Palpitations, Orthopnea, Paroxysmal Noc. Dyspnea, Lt Headedness Gastrointestinal: Reports: Nausea, Abdominal Pain Genitourinary: Denies: Dysuria, Frequency, Incontinence, Retention Hematologic: Denies: Bruising, Bleeding Excessively Musculoskeletal: Denies: Neck Pain, Back Pain, Joint Pain, Muscle Pain, Spasms Neurological: Denies: Weakness, Numbness, Change in speech, Confusion Physical Examination General Exam: Positive: Alert, Cooperative, Mild Distress Eye Exam: Positive: PERRLA, Conjunctiva & lids normal, EOMI; Negative: Sclera icteric ENT Exam: Positive: Atraumatic, Mucous membr. moist/pink, Pharynx Normal Neck Exam: Positive: Supple; Negative: JVD, thyromegaly Chest Exam: Positive: Clear to auscultation, Normal air movement Heart Exam: Positive: Rate Normal, Regular Rhythm, Normal S1, Normal S2; Negative: Murmurs, Rubs Abdomen Exam: Positive: BS Hypoactive, Soft, Tenderness, Other (no guarding or rigidity) Extremity Exam: Positive: Normal pulses; Negative: Clubbing, Cyanosis, Edema Skin Exam: Positive: Nl turgor and temperature; Negative: Breakdown, Lesion Vital Signs Vital Signs Date Time Temp Pulse Resp B/P (MAP) Pulse Ox O2 Delivery O2 Flow Rate FiO2 03/30/19 11:41 176/123 (140) 03/30/19 10:55 97.3 93 18 97 03/30/19 10:40 Room Air Laboratory Data Labs 24H Laboratory Tests 2 03/30/19 01:58: Immature Granulocyte % (Auto) 0.8, White Blood Count 7.8, Red Blood Count 4.75, Hemoglobin 15.0, Hematocrit 43.4, Mean Corpuscular Volume 91.4, Mean Corpuscular Hemoglobin 31.6, Mean Corpuscular Hemoglobin Concent 34.6, Red Cell Distribution Width 13.2, Platelet Count 173, Neutrophils (%) (Auto) 52.5, Lymphocytes (%) (Au to) 25.9, Monocytes (%) (Auto) 9.8H, Eosinophils (%) (Auto) 9.6H, Basophils (%) (Auto) 1.4H, Neutrophils # (Auto) 4.1, Lymphocytes # (Auto) 2.0, Monocytes # (Auto) 0.8, Eosinophils # (Auto) 0.8H, Basophils # (Auto) 0.1, Nucleated Red Blood Cells % (auto) 0.0, Anion Gap 9, Glomerular Filtration Rate > 60.0, Calcium Level 8.8, Aspartate Amino Transf (AST/SGOT) 108H, Alanine Aminotransferase (ALT/SGPT) 325H, Alkaline Phosphatase 59, Total Bilirubin 0.4, Direct Bilirubin 0.1, Total Protein 8.5H, Albumin 3.3, Albumin/Globulin Ratio 0.63L, Lipase 178 03/30/19 07:25: Urine Color YELLOW, Urine Appearance CLEAR, Urine pH 7.0, Urine Specific [place] 1.011, Urine Protein NEGATIVE, Urine Glucose (UA) 2+H, Urine Ketones NEGATIVE, Urine Blood NEGATIVE, Urine Nitrite NEGATIVE, Urine Bilirubin NEGATIVE, Urine Urobilinogen 2.0H, Urine Leukocyte Esterase NEGATIVE, Urine WBC (Auto) 0, Urine RBC (Auto) 2, Urine Hyaline Casts (Auto) 0, Urine Bacteria (Auto) NEGATIVE, Urine Squamous Epithelial Cells 0, Urine Mucus (Auto) SMALL, Urine Sperm (Auto) CBC/BMP Laboratory Tests 03/30/19 01:58 Red Blood Count 4.75, Mean Corpuscular Volume 91.4, Mean Corpuscular Hemoglobin 31.6, Mean Corpuscular Hemoglobin Concent 34.6, Red Cell Distribution Width 13.2, Neutrophils (%) (Auto) 52.5, Lymphocytes (%) (Auto) 25.9, Monocytes (%) (Auto) 9.8 H, Eosinophils (%) (Auto) 9.6 H, Basophils (%) (Auto) 1.4 H, Neutrophils # (Auto) 4.1, Lymphocytes # (Auto) 2.0, Monocytes # (Auto) 0.8, Eosinophils # (Auto) 0.8 H, Basophils # (Auto) 0.1 Assessment/Plan 48 year old male recently diagnosed with hypertension , smoker, thoracic aortic aneurysm admitted to the hospital for acute cholecystitis under surgical service and hospitalist has been consulted for uncontrolled hypertension. Patient presented to the ED for right upper quadrant pain constant in nature and intermittently colicky 10/10 with no radiation. The pain was associated with nausea. Patient was admitted for acute cholecystitis and planned for surgery later today. Hypertensive urgency recently diagnosed with hypertension and started on amlodipine. Now bp uncontrolled due to pain patient just got toradol about an hour ago i expect it control the bp patient also a smoker will start on nicotine patch will also give clonidine 0.2 mg once and nitroglycerine patch. will continue on amlodipine daily post surgery while patient is npo we can give clonidine patch. Once patient is eating orally will start on lisinopril 10 mg at HS along with the amlodipine Acute cholecystitis management as per surgery pain control as per surgery DVT prophylaxis as per surgery. Plan / VTE VTE Prophylaxis Ordered?: Yes NICKY REYES MD Mar 30, 2019 12:35
[2019-03-30] MEDS ORDERED: BUPIVACAINE HCL 0.5% 10 ML VIAL As Ordered ONE (17:54)
[2019-03-30] MEDS ORDERED: BUPIVACAINE HCL 0.25% 30 ML VIAL As Ordered ONE (17:55)
[2019-03-30] MEDS ORDERED: PROPOFOL 200 MG/20 ML VIAL As Ordered ONE (17:55)
[2019-03-30] MEDS ORDERED: LIDOCAINE 2% INJ 100 MG/5 ML SDV (FOR ANES.) As Ordered ONE (17:56)
[2019-03-30] MEDS ORDERED: ROCURONIUM BROMIDE 50 MG/5 ML VIAL As Ordered ONE ×2 (17:56→18:43)
[2019-03-30] MEDS ORDERED: ONDANSETRON 4MG/2ML VIAL (J2405) As Ordered ONE (17:57)
[2019-03-30] MEDS ORDERED: KETOROLAC 60 MG/2 ML VIAL (J1885) As Ordered ONE (17:57)
[2019-03-30] MEDS ORDERED: dexameTHASONE 4 MG/ML 1ML VIAL (J1100) As Ordered ONE (17:57)
[2019-03-30] MEDS ORDERED: MIDAZOLAM INJ 2 MG/2 ML VIAL (J2250) As Ordered ONE (18:00)
[2019-03-30] MEDS ORDERED: fentaNYL 250 MCG/5 ML INJECTION (J3010) As Ordered ONE (18:00)
--- NOTE | 2019-03-30 18:00 | IPN ---
DATE: 03/30/2019 Time: 1744 hours HISTORY: The patient was admitted this morning with severe right upper quadrant and epigastric pain consistent with acute cholecystitis. He has known gallstones and has been having problems over the last few weeks. At the time of admission, he was found to be quite hypertensive. As a result of that, I consulted the hospitalist and Dr. Santa Stinson saw the patient. She ordered some nitroglycerin ointment as well as an additional dose of clonidine. He had received a dose of clonidine and some amlodipine this morning in the emergency department. His blood pressure this afternoon is much improved with the most recent recorded level at 120/81 at 1400 hours. He is resting more comfortably as well. The plan is to proceed with a laparoscopic cholecystectomy for cholelithiasis with acute cholecystitis. He was counseled and desires to proceed, and he will be going to the operating room (OR) this evening for surgery.
[2019-03-30] MEDS ORDERED: PHENYLEPHRINE INJ 10MG/ML VIAL (J2370) As Ordered ONE (18:35)
[2019-03-30] MEDS ORDERED: ePHEDrine SULFATE 25 MG/5 ML(5MG/ML) SYRINGE As Ordered ONE (18:40)
[2019-03-30] MEDS ORDERED: PHENYLephrine HCL 500 MCG/5 ML (100MCG/ML) SYRINGE (J2370) As Ordered ONE (18:40)
[2019-03-30] MEDS ORDERED: KETAMINE HCL 200 MG/20 ML VIAL As Ordered ONE (19:04)
[2019-03-30] MEDS ORDERED: SUGAMMADEX SODIUM 500 MG/5 ML VIAL (BRIDION) As Ordered ONE (19:34)
[2019-03-30] MEDS ORDERED: PROMETHAZINE INJ 25 MG/ML VIAL (J2550) IV PRN (20:45)
[2019-03-30] MEDS ORDERED: fentaNYL 100 MCG/2 ML INJECTION (J3010) IV PRN (20:45)
[2019-03-30] MEDS ORDERED: LR 1,000 ML IV SCH (20:45)
[2019-03-30] MEDS ORDERED: oxyCODONE 5MG TAB PO PRN (20:45)
[2019-03-30] MEDS ORDERED: IBUPROFEN 600 MG TAB PO PRN (20:45)
[2019-03-30] MEDS ORDERED: NORCO, ANEXSIA 5/325MG TABLET (HYDROcodone/ACETAMINOPHEN) PO PRN (20:45)
[2019-03-30] MEDS ORDERED: ACETAMINOPHEN TAB 650MG DOSE (2X325MG) PO PRN (20:45)
[2019-03-31 00:20] VITALS: BP 124/63
[2019-03-31 01:20] VITALS: BP 118/65
[2019-03-31 02:20] VITALS: BP 116/56
[2019-03-31] MEDS: LR 1,000 ML IV SCH ×2 (03:41→08:44)
[2019-03-31] MEDS: PIPERACILLIN/TAZOBACTAM SOD 3.375 GM in D5W MINI-BAG PLUS 50 ML IV SCH (04:19)
[2019-03-31 06:00] VITALS: BP_SYST 102; BP_SYST 116; BP_DIAS 56
[2019-03-31 08:32] VITALS: BP 132/78
[2019-03-31] MEDS: NICOTINE 21MG/24HR 1 EA TRANSDERMAL TD SCH (08:33)
[2019-03-31] MEDS ORDERED: amLODIPine 10 MG TAB PO SCH (09:00)
[2019-03-31] MEDS ORDERED: cloNIDine HCL 0.2 MG/24 HR PATCH TOP SCH (09:00)
[2019-03-31 10:00] VITALS: BP 138/65
--- NOTE | 2019-03-31 12:40 | IPN ---
DATE: 03/30/2019 HISTORY: The patient is now postop day number 1 from laparoscopic cholecystectomy for cholelithiasis with acute cholecystitis. He has done well postoperatively. He had significant elevations of his blood pressure preoperatively, managed by the hospitalist, but these have been under better control since surgery. Vital signs show that he has been afebrile overnight. His pulse is in the 70s to low 80s and his blood pressure has ranged from 102 to 138 systolic. His O2 saturations are normal. Intake and output: The patient has been taking clear liquids well. He was advanced to regular food this morning and he has tolerated that well. He is voiding without difficulty. PHYSICAL EXAMINATION: The patient is alert and oriented. He reports no significant discomfort. Heart exam shows a regular rhythm. Abdomen is flat and soft. His dressings are dry. There is no undue abdominal tenderness and he has active bowel sounds. IMPRESSION: The patient is doing very well postop day number 1 from his laparoscopic cholecystectomy for acute cholecystitis. PLAN: He will be discharged home today. He has taken no pain medicines and so can take Tylenol or other [id number] pain medicines as necessary. I counseled him regarding limited activity for the next 2 weeks. He can take a diet as tolerated. He can shower 24 hours after the surgery, and I have advised him to try to leave the Steri-Strips in place for at least a week. I have asked him to followup with me in 10-14 days in the office. He did lose several teeth last night, which was felt to be more related to gum disease and poor oral hygiene than to the anesthesia procedure of intubation. He will followup with a dentist on an outpatient basis for further evaluation and treatment. I spoke with Dr. Stinson of the hospitalist service who felt that he did not need any additional new antihypertensives, but he should continue his amlodipine as he had been before this event. He should followup with his primary care physician regarding that. He should call if there are any problems with his abdominal surgery.
--- NOTE | 2019-04-02 09:32 | RO ---
DATE OF PROCEDURE: 03/30/2019 PREOPERATIVE DIAGNOSIS: Cholelithiasis and acute cholecystitis. POSTOPERATIVE DIAGNOSIS: Cholelithiasis and acute cholecystitis. PROCEDURE PERFORMED: Laparoscopic cholecystectomy. SURGEON: Dr. Ramirez ANESTHESIA: General. INDICATIONS FOR PROCEDURE: The patient is a 48-year-old man who has been having biliary symptoms for the last few weeks to a month. He has been diagnosed with cholelithiasis. He was in the hospital about 2 weeks ago briefly with an episode of upper abdominal pain and was diagnosed with acute cholecystitis and started on antibiotics and discharged. He returned to the emergency department with severe pain that has lasted 12 hours. His ultrasound did not show significant gallbladder wall thickening, though there was a suggestion of a stone in his gallbladder neck. He is now for laparoscopic cholecystectomy for acute cholecystitis. OPERATIVE PROCEDURE: The patient was brought to the operating room and placed on the table in a supine position. He was placed under general endotracheal anesthesia. In the course of his induction of anesthesia. Several teeth were removed from his maxilla. There appeared to be two crowns attached to the tooth roots with a third crown in between them. There did not appear to have been any excessive force used but rather evidence for significant periodontal disease leading to loss of these teeth. These were placed in a cup for later evaluation. The patient's abdomen was prepped and draped in a sterile fashion. 0.25% Marcaine was infiltrated at the trocar. A short supraumbilical midline incision was made and deepened to the fascia. A Veress needle was inserted and after positive hanging drop test the abdomen was insufflated with carbon dioxide gas. The fascia was then incised partially and a 12-mm port was placed through the midline fascia into the abdomen. The laparoscope was inserted. Initial examination showed a normal-appearing liver. Visualized portions of the stomach and small and large bowel appeared normal. There were some attachments of omentum onto the fundus of the gallbladder. The patient was tilted to a reverse Trendelenburg position. Two 5 mm trocars were placed in the right upper quadrant a third 5 mm trocar was placed in the left upper quadrant. Graspers were inserted. The patient was subsequently rolled to the left. The omental adhesions on the fundus of the gallbladder were divided using the hook cautery. The gallbladder was tensely distended and there was marked edema noted of the pericholecystic tissues. The gallbladder was aspirated with an aspirating needle of some clear bile. The gallbladder wall was clearly thickened. The gallbladder was grasped and elevated and dissection proceeded from the fundus down along the body to the neck dividing away a markedly edematous pericholecystic fibrofatty tissue. By staying close to the wall. It was easier to clarify the tissue planes. As the gallbladder neck was identified the cystic duct was clearly seen. The cystic duct was circumferentially freed and this was then doubly clipped with hemoclips and divided. Two cholecystic arteries were identified one more lateral and one medial and these were both doubly clipped with hemoclips and divided. The gallbladder was then dissected free from the gallbladder bed using cautery dissection. The gallbladder was not perforated in the course of dissection. The gallbladder was placed in an Endopouch. The right upper quadrant was irrigated and inspected. Several small bleeding points were controlled with the cautery. Final inspection showed no evidence of bleeding or bile leak. The patient was returned to a flat position. The abdomen was deflated and the trocars were removed. The gallbladder was recovered through the supraumbilical site. There were two large stones palpable within the gallbladder necessitating extension of the fascial incision slightly. The fascia was then closed with interrupted simple sutures of 2-0 Vicryl. The skin incisions were all closed with buried 5-0 Vicryl and Steri-Strips. Light dressings were applied. The patient tolerated the procedure well. He was awakened in the operating room, extubated and moved to the recovery room in stable condition.
== END 2019-03-31 12:20 | disposition home or self-care (01) ==
LOC: M ED 01:26 → M SDC 09:14 → M MSPAV 10:52 → M SDC 03-31 12:20
PROVIDERS: ATTEND Surgery
DX: K80.12 Calculus of gallbladder with acute and chronic cholecystitis without obstruction (principal); I10 Essential (primary) hypertension; I71.2 Thoracic aortic aneurysm, without rupture; M54.9 Dorsalgia, unspecified; Z72.0 Tobacco use
CPT/HCPCS: 36415; 47562; 71045; 76705; 80048; 80076; 81001; 83690; 85025; 88304; 93005; 93041; 96360; 96361; 96365; 96366; 96375; 96376; 99285; C9113; J1100; J1170; J1200; J1630; J1885; J2250; J2270; J2370; J2405; J2543; J3010

== ENCOUNTER → 2019-04-24 | Outpatient (REF) | payer OTHER, MEDICAID ==
[2019-04-24 13:54] LABS: BASO # 0.1 10^3/uL (0.0-0.2); EOS # 0.4 10^3/uL (0.0-0.50); EOS % 6.9 % (0.0-3.0); HEMATOCRIT 46.1 % (42.0-52.0); HEMOGLOBIN 15.8 g/dl (13.5-17.5); LYMPH # 1.8 10^3/uL (1.5-4.5); LYMPH % 29.8 % (24.0-44.0); MEAN CORPUSCULAR HEMOGLOBIN 31.9 pg (27.0-33.0); MEAN CORPUSCULAR HGB CONC 34.3 g/dl (32.0-36.5); MEAN CORPUSCULAR VOLUME 92.9 fl (80.0-96.0); MONO # 0.5 10^3/uL (0.0-0.8); MONO % 8.4 % (0.0-5.0); NEUTROPHILS # 3.2 10^3/uL (1.8-7.7); NEUTROPHILS % 53.1 % (36.0-66.0); PLATELET COUNT, AUTOMATED 178 10^3/uL (150-450); RED BLOOD COUNT 4.96 10^6/uL (4.30-6.10)
[2019-04-24 14:17] LABS: ALBUMIN 3.3 GM/DL (3.2-5.2); ALT/SGPT 123 U/L (12-78); BILIRUBIN,TOTAL 0.2 MG/DL (0.2-1.0); BLOOD UREA NITROGEN 15 MG/DL (7-18); CARBON DIOXIDE LEVEL 24 MEQ/L (21-32); CHLORIDE LEVEL 107 MEQ/L (98-107); CHOLESTEROL LEVEL 178 MG/DL (<200); CHOLESTEROL RISK RATIO 3.178 (<5); CREATININE FOR GFR 1.32 MG/DL (0.70-1.30); FREE T4 0.71 NG/DL (0.76-1.46); GLOMERULAR FILTRATION RATE > 60.0 (>56); GLUCOSE, FASTING 119 MG/DL (70-100); HDL CHOLESTEROL 56 MG/DL (>40); LDL CHOLESTEROL 87 MG/DL (<100); NON-HDL-C 122 MG/DL; POTASSIUM SERUM 4.2 MEQ/L (3.5-5.1); SODIUM LEVEL 138 MEQ/L (136-145); TOTAL PROTEIN 8.4 GM/DL (6.4-8.2); TRIGLYCERIDES LEVEL 177 MG/DL (<150)
[2019-04-24 15:35] LABS: HEMOGLOBIN A1c 5.7 %
== END ==
LOC: M LAB REF 13:13
PROVIDERS: ATTEND Nurse Practitioner Family
DX: I10 Essential (primary) hypertension (principal); Z13.9 Encounter for screening, unspecified

== ENCOUNTER 2019-05-29 04:41 | Emergency (ER) | payer MEDICAID, OTHER ==
[~2019-05-29] VITALS: Ht 190.5 cm; Wt 100.0 kg
[2019-05-29 04:45] VITALS: BP 198/98
[2019-05-29] MEDS ORDERED: KETO10TAB PO (05:59)
[2019-05-29] MEDS ORDERED: KETOROLAC 60 MG/2 ML VIAL (J1885) IM ONE (06:00)
--- NOTE | 2019-05-29 08:49 | REP ---
Left ankle: AP and lateral views. History: Pain times 2 years. Comparison left ankle radiographs are from January 07, 2019. Findings: There is a large plantar calcaneal spur. There is soft tissue swelling about the medial aspect of the ankle and distal calf. Ankle mortise is intact. No fracture or other acute bony abnormality is seen. Electronically Signed by Damien Aguilra MD 05/29/2019 08:42 A
--- NOTE | 2019-05-29 08:55 | REP ---
Left foot series: Two views. History: Pain. Findings: AP and lateral views of the left foot demonstrate overall normal mineralization. There is a large plantar calcaneal spur. There are tiny accessory ossicles versus fragmented spurs at the lateral aspect of the DIP joint of the second and third toes. There is minimal spurring at the first MTP joint. Impression: Mild spurring as above. Large heel spur. No acute bony abnormality. Electronically Signed by Damien Aguilar MD 05/29/2019 08:47 A
== END 2019-05-29 06:13 | disposition home or self-care (01) ==
LOC: M ED 04:41
DX: M77.32 Calcaneal spur, left foot (principal); I10 Essential (primary) hypertension; Z87.891 Personal history of nicotine dependence
CPT/HCPCS: 73600; 73620; 96372; 99283; J1885

== ENCOUNTER 2019-06-20 23:29 | Emergency (ER) | payer OTHER ==
[~2019-06-20] VITALS: Ht 190.5 cm; Wt 100.0 kg
[~2019-06-20 23:29] MED LIST changes: -ALBU17IN2 INH; +KETO10TAB PO; +PROV108A INH
[2019-06-21] MEDS ORDERED: PERCOCET 5MG/325MG TAB PO ONE (01:15)
[2019-06-21] MEDS ORDERED: amLODIPine 5 MG TAB PO ONE (01:15)
[2019-06-21 01:29] LABS: BASO # 0.1 10^3/uL (0.0-0.2); EOS # 0.2 10^3/uL (0.0-0.5); EOS % 3.3 % (0.0-3.0); LYMPH # 1.9 10^3/uL (1.5-5.0); LYMPH % 28.6 % (24.0-44.0); MEAN CORPUSCULAR HEMOGLOBIN 30.9 pg (27.0-33.0); MEAN CORPUSCULAR HGB CONC 34.1 g/dl (32.0-36.5); MEAN CORPUSCULAR VOLUME 90.5 fl (80.0-96.0); MONO # 0.6 10^3/uL (0.0-0.8); MONO % 8.7 % (0.0-5.0); NEUTROPHILS # 3.8 10^3/uL (1.5-8.5); NEUTROPHILS % 57.7 % (36.0-66.0); PLATELET COUNT, AUTOMATED 193 10^3/uL (150-450); RED BLOOD COUNT 4.86 10^6/uL (4.30-6.10); WHITE BLOOD COUNT 6.7 10^3/uL (4.0-10.0)
[2019-06-21 01:45] VITALS: BP 204/138
[2019-06-21 01:56] LABS: C REACTIVE PROTEIN QUANTITATIV 1.98 MG/DL (0.00-0.30); CALCIUM LEVEL 9.2 MG/DL (8.5-10.1); CREATININE FOR GFR 1.39 MG/DL (0.70-1.30); GLOMERULAR FILTRATION RATE 57.6 (>56); POTASSIUM SERUM 4.3 MEQ/L (3.5-5.1)
[2019-06-21] MEDS ORDERED: KEFL500C17 PO (02:56)
[2019-06-21] MEDS ORDERED: NORV5TAB PO (02:56)
[2019-06-21] MEDS ORDERED: OXYCODONE/APAP 5MG/325MG(BULK FOR ED) 1 TABLET PO ONE (03:00)
[2019-06-21] MEDS ORDERED: CEPHALEXIN 500 MG CAP PO ONE (03:00)
== END 2019-06-21 03:07 | disposition home or self-care (01) ==
LOC: M ED 23:29
DX: L03.032 Cellulitis of left toe (principal); I83.10 Varicose veins of unspecified lower extremity with inflammation; I10 Essential (primary) hypertension

== ENCOUNTER → 2019-08-09 | Outpatient (CLI) | payer OTHER ==
[~2019-08-09] MED LIST changes: +KEFL500C17 PO; +NORV5TAB PO
--- NOTE | 2019-08-10 13:22 | REP ---
Clinical: Chronic venous hypertension with nonhealing ulcer . Technique: Kyle scale and color Doppler evaluation using linear high frequency transducer including reflux evaluation . Findings: Ultrasound examination of the left lower extremity deep venous structures from the common femoral vein to the popliteal vein demonstrates normal compressibility flow and wave patterns in response to respiration and augmentation. There is no evidence for deep venous thrombosis. There is evidence for reflux through the deep and superficial systems. Proximal greater saphenous vein measures 9.6 mm diameter with reflux duration 4 seconds; the mid greater saphenous vein measures 8.2 mm diameter with reflux duration 4.5 seconds; distal greater saphenous vein measures 8.7 mm diameter with reflux duration 4.9 seconds. Impression: No evidence for deep venous thrombosis. Reflux through the deep system and greater saphenous vein. Electronically Signed by José Larose MD 08/10/2019 01:14 P
== END ==
LOC: M RAD 14:20
PROVIDERS: ATTEND Surgery
DX: L97.829 Non-pressure chronic ulcer of other part of left lower leg with unspecified severity (principal)

== ENCOUNTER 2019-10-05 19:50 | Emergency (ER) | payer OTHER ==
[~2019-10-05] VITALS: Ht 190.5 cm; Wt 103.4 kg
[2019-10-05] MEDS ORDERED: ONDANSETRON 4MG/2ML VIAL (J2405) IV ONE (20:15)
[2019-10-05] MEDS ORDERED: NS 1,000 ML IV ONE (20:15)
[2019-10-05] MEDS ORDERED: MORPHINE 4 MG/ML 1ML VIAL/SYRINGE (J2270) IV ONE (20:15)
[2019-10-05] MEDS ORDERED: ISOVUE-370 76% 100ML VIAL (Q9967) As Ordered ONE (20:21)
[2019-10-05 20:24] LABS: BASO # 0.1 10^3/uL (0.0-0.2); EOS # 0.2 10^3/uL (0.0-0.5); EOS % 2.1 % (0.0-3.0); HEMOGLOBIN 14.7 g/dl (13.5-17.5); LYMPH # 1.9 10^3/uL (1.5-5.0); LYMPH % 22.4 % (24.0-44.0); MEAN CORPUSCULAR HEMOGLOBIN 30.3 pg (27.0-33.0); MEAN CORPUSCULAR HGB CONC 34.2 g/dl (32.0-36.5); MEAN CORPUSCULAR VOLUME 88.7 fl (80.0-96.0); MONO # 0.8 10^3/uL (0.0-0.8); MONO % 9.4 % (0.0-5.0); NEUTROPHILS # 5.3 10^3/uL (1.5-8.5); NEUTROPHILS % 64.5 % (36.0-66.0); PLATELET COUNT, AUTOMATED 197 10^3/uL (150-450); RED BLOOD COUNT 4.85 10^6/uL (4.30-6.10); WHITE BLOOD COUNT 8.3 10^3/uL (4.0-10.0)
[2019-10-05] MEDS ORDERED: METO1TAB7 PO (20:35)
[2019-10-05] MEDS ORDERED: fentaNYL 100 MCG/2 ML INJECTION (J3010) IV ONE (20:45)
[2019-10-05 20:52] LABS: INR 1.03; PROTHROMBIN TIME 13.2 SECONDS (11.8-14.0)
[2019-10-05 20:53] LABS: PARTIAL THROMBOPLASTIN TIME 33.7 SECONDS (25.0-38.4)
[2019-10-05 21:00] LABS: ALBUMIN 3.9 GM/DL (3.2-5.2); ALT/SGPT 34 U/L (12-78); BILIRUBIN,DIRECT 0.1 MG/DL (0.0-0.2); BILIRUBIN,TOTAL 0.3 MG/DL (0.2-1.0); CK-MB VALUE MASS 5.1 NG/ML (<3.6); CPK CREATINE PHOSPHOKINASE 259 U/L (39-308); LIPASE 103 U/L (73-393); MB/CK RELATIVE INDEX 1.97 (< OR =4); TOTAL PROTEIN 8.8 GM/DL (6.4-8.2); TROPONIN I < 0.02 NG/ML (< 0.10)
[2019-10-05] MEDS ORDERED: METAL LOCK LOOP XX ONE (21:33)
--- NOTE | 2019-10-05 21:47 | REPVR ---
PROCEDURE INFORMATION: Exam: CT Angiography Abdomen and Pelvis With Contrast Exam date and time: 10/05/2019 8:46 PM Age: 48 years old Clinical indication: Abdominal pain; Generalized; Additional info: Abd/chest pain/hx of thoracic aneurysm TECHNIQUE: Imaging protocol: Computed tomographic angiography of the abdomen and pelvis with intravenous contrast material. 3D rendering: MIP and/or 3D reconstructed images were created by the technologist. Radiation optimization: All CT scans at this facility use at least one of these dose optimization techniques: automated exposure control; mA and/or kV adjustment per patient size (includes targeted exams where dose is matched to clinical indication); or iterative reconstruction. Contrast material: ISOVUE 370; Contrast volume: 100 ml; Contrast route: IV; COMPARISON: No relevant prior studies available. FINDINGS: Aorta: No aortic aneurysm. No aortic dissection. Celiac trunk and mesenteric arteries: No occlusion or significant stenosis. Renal arteries: No occlusion or significant stenosis. Right iliac arteries: No occlusion or significant stenosis. Left iliac arteries: No occlusion or significant stenosis. Liver: No mass. Gallbladder and bile ducts: There has been prior cholecystectomy. Pancreas: Unremarkable. No mass. No ductal dilation. Spleen: Unremarkable. No splenomegaly. Adrenals: Unremarkable. No mass. Kidneys and ureters: Unremarkable. No solid mass. No hydronephrosis. Stomach and bowel: Unremarkable. No obstruction. No mucosal thickening. Appendix: No evidence of appendicitis. Intraperitoneal space: Unremarkable. No free air. No significant fluid collection. Lymph nodes: Unremarkable. No enlarged lymph nodes. Bladder: Unremarkable. No mass. Reproductive: Unremarkable as visualized. Bones/joints: There are degenerative changes in the spine and pelvis. Soft tissues: Unremarkable. IMPRESSION: No acute findings. Electronically signed by: Farhat Lebron On 10/05/2019 21:47:00 PM
--- NOTE | 2019-10-05 21:52 | REPVR ---
PROCEDURE INFORMATION: Exam: CT Angiography Chest With Contrast Exam date and time: 10/05/2019 8:46 PM Age: 48 years old Clinical indication: Chest pain; Additional info: Abd/chest pain/hx of thoracic aneurysm TECHNIQUE: Imaging protocol: Computed tomographic angiography of the chest with intravenous contrast. 3D rendering: MIP and/or 3D reconstructed images were created by the technologist. Radiation optimization: All CT scans at this facility use at least one of these dose optimization techniques: automated exposure control; mA and/or kV adjustment per patient size (includes targeted exams where dose is matched to clinical indication); or iterative reconstruction. Contrast material: ISOVUE 370; Contrast volume: 100 ml; Contrast route: IV; COMPARISON: CR Chest, 1 view 03/30/2019 7:43 AM FINDINGS: Pulmonary arteries: Normal. No pulmonary emboli. Aorta: Ascending thoracic aorta is aneurysmal measuring 4.6 cm. No aortic dissection. Remainder of the aorta is unremarkable. Lungs: Unremarkable. No consolidation. No masses. Pleural space: Unremarkable. No pneumothorax. No pleural effusion. Heart: Unremarkable. No cardiomegaly. No pericardial effusion. Lymph nodes: Unremarkable. No enlarged lymph nodes. Bones/joints: Skeletal degenerative changes are noted. Soft tissues: Unremarkable. IMPRESSION: 1. Mild aneurysmal enlargement of the ascending thoracic aorta at 4.6 cm. Remainder of the aorta is unremarkable. No dissection. 2. Otherwise unremarkable. No acute findings. Electronically signed by: Farhat Lebron On 10/05/2019 21:52:02 PM
[2019-10-05] MEDS ORDERED: KETOROLAC 30 MG/ML VIAL (J1885) IV ONE (22:00)
[2019-10-05 22:45] LABS: AMPHETAMINES LEVEL URINE POSITIVE (NEGATIVE); BARBITURATES URINE NEGATIVE (NEGATIVE); BENZODIAZEPINES URINE NEGATIVE (NEGATIVE); CANNABINOIDS URINE NEGATIVE (NEGATIVE); COCAINE METABOLITE URINE NEGATIVE (NEGATIVE); METHADONE URINE NEGATIVE (NEGATIVE); OPIATES URINE POSITIVE (NEGATIVE); PHENCYCLIDINE URINE NEGATIVE (NEGATIVE)
[2019-10-06 00:30] VITALS: BP 179/109
--- NOTE | 2019-10-08 06:47 | ED PDOC ---
Post-Departure Follow-Up dr elvis bravo faxed formal report of cta chest for fu Fabiana Rodriguez MD Oct 08, 2019 06:47
== END 2019-10-06 00:38 | disposition home or self-care (01) ==
LOC: M ED 19:50
DX: R33.9 Retention of urine, unspecified (principal); I71.2 Thoracic aortic aneurysm, without rupture; Z79.899 Other long term (current) drug therapy; F17.210 Nicotine dependence, cigarettes, uncomplicated
CPT/HCPCS: 71275; 74174; 80047; 80076; 80307; 81001; 82550; 82553; 83605; 83690; 85025; 85610; 85730; 86850; 86900; 86901; 93041; 96361; 96374; 96375; 99285; J1885; J2270; J2405; J3010; Q9967

== ENCOUNTER 2019-10-06 09:04 | Emergency (ER) | payer OTHER ==
[~2019-10-06] VITALS: Ht 190.5 cm; Wt 104.5 kg
[~2019-10-06 09:04] MED LIST changes: +METO1TAB7 PO
[2019-10-06] MEDS ORDERED: KETOROLAC 30 MG/ML VIAL (J1885) IV ONE (09:30)
[2019-10-06] MEDS ORDERED: NS 1,000 ML IV ONE (09:30)
[2019-10-06] MEDS ORDERED: ONDANSETRON 4MG/2ML VIAL (J2405) IV ONE (09:30)
[2019-10-06] MEDS ORDERED: HALOPERIDOL 5 MG/ML VIAL (J1630) IV ONE (10:00)
[2019-10-06] MEDS ORDERED: METOPROLOL SUCC (TopROL XL) 50MG **XL** TAB PO ONE (10:00)
[2019-10-06] MEDS ORDERED: amLODIPine 5 MG TAB PO ONE (10:00)
[2019-10-06 10:01] LABS: BASO # 0.1 10^3/uL (0.0-0.2); BASO % 0.6 % (0.0-1.0); EOS # 0.1 10^3/uL (0.0-0.5); EOS % 1.3 % (0.0-3.0); LYMPH # 1.5 10^3/uL (1.5-5.0); LYMPH % 14.2 % (24.0-44.0); MEAN CORPUSCULAR HEMOGLOBIN 30.5 pg (27.0-33.0); MEAN CORPUSCULAR VOLUME 89.5 fl (80.0-96.0); MONO # 0.8 10^3/uL (0.0-0.8); MONO % 7.5 % (0.0-5.0); NEUTROPHILS # 8.2 10^3/uL (1.5-8.5); NEUTROPHILS % 75.9 % (36.0-66.0); PLATELET COUNT, AUTOMATED 220 10^3/uL (150-450); RED BLOOD COUNT 5.25 10^6/uL (4.30-6.10); WHITE BLOOD COUNT 10.8 10^3/uL (4.0-10.0)
[2019-10-06 10:10] VITALS: BP 204/122
[2019-10-06] MEDS ORDERED: AMOXICILLIN SUSP 400 MG/5 ML ORAL SYRINGE *ED As Ordered ONE (10:29)
[2019-10-06 10:37] LABS: ALBUMIN 3.9 GM/DL (3.2-5.2); BILIRUBIN,DIRECT 0.1 MG/DL (0.0-0.2); BILIRUBIN,TOTAL 0.6 MG/DL (0.2-1.0); CALCIUM LEVEL 9.4 MG/DL (8.5-10.1); CREATININE FOR GFR 1.4 MG/DL (0.70-1.30); GLOMERULAR FILTRATION RATE 57.1 (>56); POTASSIUM SERUM 3.7 MEQ/L (3.5-5.1); TOTAL PROTEIN 9.6 GM/DL (6.4-8.2)
[2019-10-06 12:46] VITALS: BP 172/103
--- NOTE | 2019-10-06 13:58 | REP ---
REASON FOR EXAM: Right upper quadrant pain. COMPARISON EXAM: 03/30/2019. Since the prior examination the patient has had cholecystectomy. Multiple ultrasonographic images of the liver showed the hepatic parenchyma echo pattern to be within normal limits and essentially unchanged from the prior exam. No mass or intrahepatic ductal dilatation has developed. The common bile duct measures 5 mm in its greatest transverse dimension. The imaged portion of the pancreas and right kidney are within normal limits and essentially unchanged. IMPRESSION:No evidence of acute disease. Electronically Signed by Vern Turner DO 10/06/2019 03:54 P
== END 2019-10-06 12:49 | disposition home or self-care (01) ==
LOC: M ED 09:04
DX: R10.9 Unspecified abdominal pain (principal); I10 Essential (primary) hypertension; Z79.899 Other long term (current) drug therapy; F17.210 Nicotine dependence, cigarettes, uncomplicated
CPT/HCPCS: 36415; 76705; 80048; 80076; 81001; 83605; 83690; 85025; 96361; 96374; 96375; 99284; J1630; J1885; J2405

== ENCOUNTER → 2019-12-25 | Outpatient (POV) | payer OTHER ==
[~2019-12-25] VITALS: Ht 190.5 cm; Wt 102.3 kg
[2019-12-25 10:35] VITALS: BP 188/126
--- NOTE | 2019-12-26 15:00 | IRCOV ---
[facility] IR Consult Office Visit IR Consult Office Visit DATE: Dec 25, 2019 REASON FOR CONSULTATION/CHIEF COMPLAINT: Varicose veins. HISTORY OF PRESENT ILLNESS: 49-year-old male complaining of left leg swelling and pain for years. Swelling is more problematic and progressive over the past 4 months. He says he's had bulging varicose veins in the left leg for years. This was treated with vein stripping 20 years ago. This was done for pain and it helped for about 10 years. Symptoms are back. He does wear compression stockings. He's had an ulcer of the left medial malleolus which he states, healed 2 months ago. No prior history of deep vein thrombosis. ALLERGIES: Please see below. HOME MEDICATIONS: Please see below. PAST MEDICAL HISTORY: Hypertension Chronic pain Venous stasis ulcers Headache Proteinuria Hypernatremia PAST SURGICAL HISTORY: Left leg vein stripping Lumbar fusion Gallbladder surgery FAMILY HISTORY: Family history of varicose veins SOCIAL HISTORY: Current smoker. Occasional alcohol. No drugs. REVIEW OF SYSTEMS: Otherwise negative PHYSICAL EXAMINATION: VITAL SIGNS: Please see below. GENERAL APPEARANCE: Appears well. Comfortable at rest. HEENT: No scleral icterus. RESPIRATORY: Normal breathing at rest. CARDIOVASCULAR: Normal rate. ABDOMEN: Soft nontender. EXTREMITIES: Right lower extremity: Hemosiderin deposition. Lipodermatosclerosis. Skin discoloration. Mild edema. Sensation intact. Motor 4 out of 5. Rubor. Spider veins. Bulging veins along the GSV distribution. Left lower extremity: Hemosiderin deposition. Lipodermatosclerosis. Skin discoloration. Mild edema. Sensation intact. Motor 4 out of 5. Rubor. Spider veins. Bulging veins along the GSV distribution. NEUROLOGICAL: Alert and oriented. PSYCHIATRIC: Appropriate to circumstance. LABORATORY DATA: 10/06/2019 hemoglobin 16 hematocrit 47 WBC 10.8 platelets 220 sodium 135 potassium 3.7 BUN 17 creatinine 1.4 Imaging: I personally reviewed the left lower extremity venous ultrasound from July 2019. There is dilation of the left greater saphenous vein with greater than 0.5 seconds of reflux. ASSESSMENT/PLAN: 49-year-old male with chronic left lower extremity pain and swelling associated with skin changes; CEAP classification 4 and florid superficial venous reflux on ultrasound. I agree patient would benefit from EVLT therapy. We discussed the risks and benefits of the procedure and patient would like to proceed. We have scheduled the patient for left leg EVLT. I will also obtain an ultrasound of the right lower extremity to look for venous reflux and proceed with right leg EVLT if indicated. I spent 30 minutes in consultation with the patient. Thank you for this referral. Cc Dr. Alanis Allergies Coded Allergies: No Known Allergies (Verified , 05/29/19) Home Medications Scheduled Amlodipine Besylate (Norvasc), 1 TAB PO DAILY Metoprolol Succinate (Metoprolol Succinate), 50 MG PO DAILY, (Reported) VS, I&O, 24H, Fishbone Vital Signs/I&O Vital Signs Date Time Temp Pulse Resp B/P (MAP) Pulse Ox O2 Delivery O2 Flow Rate FiO2 12/25/19 10:35 97.1 96 18 188/126 (146) 94 Room Air YASMIN ALEJANDRO MD Dec 26, 2019 15:00
== END ==
LOC: M IRPOV 10:22
PROVIDERS: ATTEND Radiology Diagnostic Radiology
DX: M79.605 Pain in left leg (principal); I87.312 Chronic venous hypertension (idiopathic) with ulcer of left lower extremity; I10 Essential (primary) hypertension; G89.29 Other chronic pain; R51 Headache; R80.9 Proteinuria, unspecified; E87.0 Hyperosmolality and hypernatremia; F17.210 Nicotine dependence, cigarettes, uncomplicated; Z98.1 Arthrodesis status

== ENCOUNTER → 2020-04-21 | Outpatient (CLI) | payer OTHER ==
[~2020-04-21] VITALS: Ht 190.5 cm; Wt 104.3 kg
[~2020-04-21] MED LIST changes: -AMLO10TA5 PO; +AMLO1TAB25 PO; +LIDOCAINE 1% MDV 20ML VIAL As Ordered ONE; +LIDOCAINE 2% MDV 20ML VIAL As Ordered ONE; +METOPROLOL SUCC (TopROL XL) 50MG **XL** TAB PO ONE; +METOPROLOL TART 50 MG TAB PO ONE; +MIDAZOLAM INJ 2MG/2ML VIAL (J2250 PER 1MG) As Ordered ONE; +PROMETHAZINE INJ 25 MG/ML VIAL (J2550) As Ordered ONE; +amLODIPine 5 MG TAB PO ONE; +diphenhydrAMINE 50MG/ML VIAL (J1200) As Ordered ONE; +fentaNYL 100 MCG/2 ML INJECTION (J3010) As Ordered ONE; +hydrALAZINE 20MG/ML 1ML VIAL (J0360 PER 20MG) As Ordered ONE
--- NOTE | 2020-04-21 14:00 | REP ---
RIGHT LOWER EXTREMITY DUPLEX DOPPLER VENOUS ULTRASOUND WITH EVALUATION FOR VENOUS REFLUX: Real-time compression and duplex Doppler interrogation of right lower extremity deep venous system is performed. Right common femoral, superficial femoral and popliteal veins are fully compressible with transducer pressure and demonstrate normal spontaneous and phasic flow without evidence of deep venous thrombosis. Evaluation for venous reflux in the right lower extremity demonstrates severe reflux in the greater saphenous vein, which is dilated. Reflux in the greater saphenous vein at the saphenofemoral junction has a duration of 4.3 seconds with AP diameter of 11 mm, at the mid thigh duration is 5.3 seconds with AP diameter of 9 mm and at the knee duration is 3.9 seconds with AP diameter of 9 mm. There is no reflux in the lesser saphenous vein which measures 4 mm. There is reflux in the anterior accessory greater saphenous vein with duration of 5.5 seconds, AP diameter is 3 mm. There is minimal reflux in the common femoral vein and proximal superficial femoral vein. Electronically Signed by Douglas Kyle MD 04/21/2020 03:32 P
[2020-04-21 16:10] VITALS: BP 183/119
--- NOTE | 2020-04-21 22:48 | POST-OPPD ---
Postoperative Procedure Note Date Of Procedure: Apr 21, 2020 Time Of Procedure: 15:00 PREOPERATIVE DIAGNOSIS: left leg venous incompetency. ulcers POSTOPERATIVE DIAGNOSIS: same FINDINGS: left gsv dilated with reflux PROCEDURE: left leg EVLT SURGEON:yovanny ANESTHESIA: mod sed ESTIMATED BLOOD LOSS: < 5 ml COMPLICATIONS: none POSTOPERATIVE CONDITION: stable YASMIN ALEJANDRO MD Apr 21, 2020 22:48
--- NOTE | 2020-04-23 16:23 | REP ---
IR Endovenous laser treatment for left leg varicose vein. IR Ultrasound of the left leg. IR Tumescent anesthesia under ultrasound guidance. IR Moderate sedation. Clinical information: Left leg pain and swelling associated with recurrent venous ulcerations, dilated to GSV with greater than 0.5 seconds reflux. Physician: Dr. Aburto. Procedure: The patient was advised of the benefits, risks and alternatives of the procedure and informed consent was obtained. The time-out was performed with verification of the patient's name, MRN, site of procedure and type of procedure to be performed. The patient was positioned in the supine position on the table. The site was prepped and draped in the usual sterile fashion. Moderate sedation was performed by the physician including the presence of an independent trained observer who assisted in monitoring the patient's level of consciousness and physiologic status. Following the administration of fentanyl and Versed , the physician spent 45 minutes of continuous face to face time with the patient. Ultrasound of the left lower extremity demonstrates dilated left greater saphenous vein with greater than 0.5-second reflux. The access site was identified with ultrasound and anesthetized with lidocaine. The GSV was accessed under ultrasound guidance distal thigh, using a micro introducer needle. An 018 cope wire was advanced into the vein. Incision at the access site was made using a scalpel. The needle was removed and a micro sheath was advanced over the wire under ultrasound guidance. The wire was exchanged for a longer wire which was advanced into the vein under ultrasound guidance. The micro sheath was removed over the wire and an access was advanced over the wire, under ultrasound guidance and positioned > 2.5 centimeters from the saphenofemoral junction. The laser fiber was advanced through the catheter under ultrasound guidance and positioned with the tip located > 2.5 cm from the saphenous femoral junction. Tumescent anesthesia was then injected under ultrasound guidance along the entire length of the vein to be treated. Repeat ultrasound of the saphenofemoral junction was used to confirm positioning of the tip of the laser back > 2.5 cm from junction. The patient was positioned in Trendelenburg. The laser was then activated and under ultrasound guidance used to laser the left greater saphenous vein back to the access point. Simultaneous manual compression was applied to the treated vein. Treatment: Wattage: 7 Time: 146 seconds Pullback rate 1 cm every 7 seconds Total Energy deposited 1020 joules Treatment 50 joules per centimeter of vein. The fiber and sheath were removed, pressure held and hemostasis achieved. A sterile dressing was applied to the site. Compression dressing was then applied to the leg, from ankle to groin. The patient tolerated the procedure well and was returned to the PRU in stable condition. EBL: < 5 ml. Complications: None. Impression: 1. Ultrasound demonstrates dilated left greater saphenous vein with abnormal reflux. 2. Successful left greater saphenous vein ablation with laser. 3. Compression dressing applied from ankle to groin. Patient to return in 1 week for follow up ultrasound at which time the compression dressing will be switched to stockings. Thank you this referral. Electronically Signed by Peri Aburto MD 04/23/2020 04:22 P
== END ==
LOC: M IRPRO 10:11 → M RAD 10:11
PROVIDERS: ATTEND Radiology Diagnostic Radiology
DX: I83.029 Varicose veins of left lower extremity with ulcer of unspecified site (principal); I83.812 Varicose veins of left lower extremity with pain; I87.2 Venous insufficiency (chronic) (peripheral)
CPT/HCPCS: 36478; 76940; 99152; 99153; J0360; J2250; J3010

== ENCOUNTER → 2020-05-19 | Outpatient (CLI) | payer OTHER ==
[~2020-05-19] MED LIST changes: -METOPROLOL SUCC (TopROL XL) 50MG **XL** TAB PO ONE; -METOPROLOL TART 50 MG TAB PO ONE; -PROMETHAZINE INJ 25 MG/ML VIAL (J2550) As Ordered ONE; -amLODIPine 5 MG TAB PO ONE; -hydrALAZINE 20MG/ML 1ML VIAL (J0360 PER 20MG) As Ordered ONE
--- NOTE | 2020-08-21 08:42 | IRPN ---
[facility] IR Progress Note IR Progress Note DATE: May 19, 2020 EVLT Procedure was not performed today due to patient's high blood pressure. Patient will be rescheduled once he has seen his PCP, for blood pressure control. Cc PCP Allergies Coded Allergies: No Known Allergies (Verified , 05/29/19) YASMIN ALEJANDRO MD Aug 21, 2020 08:42
== END ==
LOC: M IRPRO 12:30
PROVIDERS: ATTEND Radiology Diagnostic Radiology
DX: I83.812 Varicose veins of left lower extremity with pain (principal); Z53.9 Procedure and treatment not carried out, unspecified reason

== ENCOUNTER 2021-06-02 15:59 | Emergency (ER) | payer OTHER ==
[~2021-06-02] VITALS: Ht 190.5 cm; Wt 102.3 kg
[2021-06-02 15:59] VITALS: BP 230/140
[~2021-06-02 15:59] MED LIST changes: -LIDOCAINE 1% MDV 20ML VIAL As Ordered ONE; -LIDOCAINE 2% MDV 20ML VIAL As Ordered ONE; -MIDAZOLAM INJ 2MG/2ML VIAL (J2250 PER 1MG) As Ordered ONE; -diphenhydrAMINE 50MG/ML VIAL (J1200) As Ordered ONE; -fentaNYL 100 MCG/2 ML INJECTION (J3010) As Ordered ONE
== END 2021-06-02 20:11 | disposition left against medical advice (07) ==
LOC: M ED 15:59
DX: Z53.29 Procedure and treatment not carried out because of patient's decision for other reasons (principal)

== ENCOUNTER → 2023-03-08 | Outpatient (CLI) | payer OTHER ==
[~2023-03-08] MED LIST changes: +ALBU6.7H6 INH; -PROV108A INH
== END ==
LOC: M RAD 10:17
PROVIDERS: ATTEND Nurse Practitioner Family
DX: I73.9 Peripheral vascular disease, unspecified (principal)

== ENCOUNTER → 2023-07-04 | Outpatient (CLI) | payer MEDICAID | LOC: M OUTALCOH 07:16 | PROVIDERS: ATTEND Psychiatry & Neurology Psychiatry | DX: F10.10 Alcohol abuse, uncomplicated (principal) ==

== ENCOUNTER → 2023-09-19 | Outpatient (CLI) | payer MEDICAID, OTHER ==
[2023-09-19 09:49] LABS: BASO # 0.1 10^3/uL (0.0-0.2); BASO % 0.7 % (0.0-1.0); EOS # 0.5 10^3/uL (0.0-0.5); EOS % 4.8 % (0.0-3.0); HEMATOCRIT 47.6 % (42.0-52.0); HEMOGLOBIN 16.6 g/dl (13.5-17.5); LYMPH # 2.2 10^3/uL (1.5-5.0); LYMPH % 21.3 % (24.0-44.0); MEAN CORPUSCULAR HEMOGLOBIN 29.6 pg (27.0-33.0); MEAN CORPUSCULAR HGB CONC 34.9 g/dl (32.0-36.5); MONO # 0.9 10^3/uL (0.0-0.8); MONO % 8.6 % (2.0-8.0); NEUTROPHILS # 6.7 10^3/uL (1.5-8.5); NEUTROPHILS % 63.6 % (36.0-66.0); PLATELET COUNT, AUTOMATED 246 10^3/uL (150-450); WHITE BLOOD COUNT 10.5 10^3/uL (4.0-10.0)
[2023-09-19 10:18] LABS: ALBUMIN 3.6 G/DL (3.2-5.2); BILIRUBIN,TOTAL 0.3 MG/DL (0.3-1.2); CALCIUM LEVEL 9.4 MG/DL (8.5-10.1); CHOLESTEROL RISK RATIO 5.08 (<5); CREATININE FOR GFR 2.3 MG/DL (0.70-1.30); GLOMERULAR FILTRATION RATE 31.7 (>56); HDL CHOLESTEROL 40.1 MG/DL (>40); LDL CHOLESTEROL 102.5 MG/DL (<100); NON-HDL-C 163.9 MG/DL; POTASSIUM SERUM 4.6 MMOL/L (3.5-5.1); TOTAL PROTEIN 8.1 G/DL (5.7-8.2)
[2023-09-19 10:34] LABS: THYROID STIMULATING HORMONE 3.87 uIU/ML (0.55-4.78)
== END ==
LOC: M LAB 09:07
PROVIDERS: ATTEND Internal Medicine Cardiovascular Disease
DX: I35.0 Nonrheumatic aortic (valve) stenosis (principal)

== ENCOUNTER → 2023-09-23 | Outpatient (CLI) | payer OTHER ==
[2023-09-23 10:16] LABS: ALBUMIN 3.8 G/DL (3.2-5.2); CALCIUM LEVEL 9.2 MG/DL (8.5-10.1); CREATININE FOR GFR 2.56 MG/DL (0.70-1.30); PHOSPHORUS LEVEL 4.4 MG/DL (2.5-4.9); POTASSIUM SERUM 4.9 MMOL/L (3.5-5.1)
== END ==
LOC: M LAB 09:20
PROVIDERS: ATTEND Internal Medicine Cardiovascular Disease
DX: N19 Unspecified kidney failure (principal); I11.0 Hypertensive heart disease with heart failure; I50.32 Chronic diastolic (congestive) heart failure

== ENCOUNTER → 2023-09-26 | Outpatient (CLI) | payer OTHER ==
[2023-09-26 14:10] LABS: ALBUMIN 3.7 G/DL (3.2-5.2); CALCIUM LEVEL 8.9 MG/DL (8.5-10.1); CREATININE FOR GFR 2.7 MG/DL (0.70-1.30); GLOMERULAR FILTRATION RATE 26.3 (>56); PHOSPHORUS LEVEL 4.7 MG/DL (2.5-4.9); POTASSIUM SERUM 4.4 MMOL/L (3.5-5.1)
== END ==
LOC: M LAB 12:45
PROVIDERS: ATTEND Internal Medicine Cardiovascular Disease
DX: N17.9 Acute kidney failure, unspecified (principal); I50.32 Chronic diastolic (congestive) heart failure

== ENCOUNTER 2023-11-22 13:08 | Observation (INO) | payer OTHER ==
[~2023-11-22] VITALS: Ht 190.5 cm; Wt 115.6 kg
[2023-11-22] MEDS: LABETALOL 100MG/20ML VIAL IV STA (14:25)
[2023-11-22 14:30] LABS: BASO # 0.1 10^3/uL (0.0-0.2); BASO % 0.7 % (0.0-1.0); EOS # 0.2 10^3/uL (0.0-0.5); EOS % 2.4 % (0.0-3.0); HEMATOCRIT 42.4 % (42.0-52.0); HEMOGLOBIN 14.3 g/dl (13.5-17.5); LYMPH # 2.2 10^3/uL (1.5-5.0); LYMPH % 26.6 % (24.0-44.0); MEAN CORPUSCULAR HEMOGLOBIN 29.1 pg (27.0-33.0); MEAN CORPUSCULAR HGB CONC 33.7 g/dl (32.0-36.5); MEAN CORPUSCULAR VOLUME 86.4 fl (80.0-96.0); MONO # 0.6 10^3/uL (0.0-0.8); MONO % 7.7 % (2.0-8.0); NEUTROPHILS # 5.1 10^3/uL (1.5-8.5); NEUTROPHILS % 61.9 % (36.0-66.0); PLATELET COUNT, AUTOMATED 209 10^3/uL (150-450); RED BLOOD COUNT 4.91 10^6/uL (4.30-6.10); WHITE BLOOD COUNT 8.3 10^3/uL (4.0-10.0)
[2023-11-22 14:45] LABS: CK-MB VALUE MASS 2.7 NG/ML (<3.6); INR 1.12
[2023-11-22 14:46] LABS: PARTIAL THROMBOPLASTIN TIME 33.7 SECONDS (24.8-34.2)
[2023-11-22 14:48] LABS: CALCIUM LEVEL 9.1 MG/DL (8.5-10.1); CREATININE FOR GFR 2.42 MG/DL (0.70-1.30); GLOMERULAR FILTRATION RATE 29.9 (>56); MB/CK RELATIVE INDEX 1.5 (< OR =4)
[2023-11-22 14:50] LABS: FREE T4 0.9 NG/DL (0.89-1.76); THYROID STIMULATING HORMONE 3.36 uIU/ML (0.55-4.78)
[2023-11-22 14:58] LABS: RSV AMPLIFICATION NEGATIVE (NEGATIVE)
[2023-11-22] MEDS ORDERED: LABETALOL 100MG/20ML VIAL IV STA (15:05)
[2023-11-22] MEDS: MORPHINE 4 MG/ML 1ML VIAL IV ONE (15:27)
[2023-11-22] MEDS: SPIRONOLACTONE 50 MG TAB PO ONE (15:27)
[2023-11-22] MEDS: CARVedilol 12.5 MG TAB PO ONE (15:27)
[2023-11-22 16:14] LABS: CK-MB VALUE MASS 2.9 NG/ML (<3.6)
[2023-11-22 16:26] LABS: MB/CK RELATIVE INDEX 1.67 (< OR =4)
[2023-11-22] MEDS ORDERED: MOM 30ML SUSPENSION UDC PO PRN (18:15)
[2023-11-22] MEDS ORDERED: ACETAMINOPHEN TAB 650MG DOSE (2X325MG) PO PRN (18:15)
[2023-11-22] MEDS ORDERED: MAALOX 30 ML SUSP *UDC PO PRN (18:15)
[2023-11-22] MEDS ORDERED: HOME MED LIST COMPLETE! XX SCH (18:25)
[2023-11-22] MEDS: DOCUSATE SODIUM 100MG CAPSULE PO SCH (21:00)
[2023-11-22 21:47] VITALS: BP 176/116; TEMP 97; O2SAT 97
[2023-11-22] MEDS: CARVedilol 12.5 MG TAB PO SCH (22:20)
[2023-11-22] MEDS: HEPARIN SOD (PORCINE) 5000UNITS/ML 1ML VIAL/SYRINGE SC SCH (22:21)
[2023-11-22 23:00] VITALS: BP 158/108
[2023-11-23] VITALS: TEMP 97.5; O2SAT 94
[2023-11-23 04:00] VITALS: BP 162/98; TEMP 97.4; O2SAT 94
[2023-11-23 05:32] LABS: BASO # 0.1 10^3/uL (0.0-0.2); BASO % 1.2 % (0.0-1.0); EOS # 0.3 10^3/uL (0.0-0.5); EOS % 3.8 % (0.0-3.0); HEMATOCRIT 42.1 % (42.0-52.0); HEMOGLOBIN 13.8 g/dl (13.5-17.5); LYMPH # 1.6 10^3/uL (1.5-5.0); LYMPH % 24.1 % (24.0-44.0); MEAN CORPUSCULAR HEMOGLOBIN 28.5 pg (27.0-33.0); MEAN CORPUSCULAR HGB CONC 32.8 g/dl (32.0-36.5); MONO # 0.6 10^3/uL (0.0-0.8); MONO % 8.5 % (2.0-8.0); NEUTROPHILS # 4.1 10^3/uL (1.5-8.5); NEUTROPHILS % 61.8 % (36.0-66.0); PLATELET COUNT, AUTOMATED 194 10^3/uL (150-450); RED BLOOD COUNT 4.84 10^6/uL (4.30-6.10); WHITE BLOOD COUNT 6.6 10^3/uL (4.0-10.0)
[2023-11-23 06:00] LABS: CALCIUM LEVEL 8.7 MG/DL (8.5-10.1); CREATININE FOR GFR 2.48 MG/DL (0.70-1.30); GLOMERULAR FILTRATION RATE 29.1 (>56); MAGNESIUM LEVEL 2.2 MG/DL (1.8-2.4); POTASSIUM SERUM 5.1 MMOL/L (3.5-5.1)
[2023-11-23 07:40] VITALS: BP 170/108; TEMP 97.6; O2SAT 93
[2023-11-23 09:03] VITALS: BP 173/98
[2023-11-23] MEDS ORDERED: CARV25TA PO (09:44)
[2023-11-23 10:39] VITALS: BP 160/90
[2023-11-23] MEDS ORDERED: ASPI81CH33 PO (10:59)
[2023-11-23] MEDS ORDERED: HYDR-3910 PO (10:59)
[2023-11-23] MEDS ORDERED: ATOR40TA75 PO (10:59)
[2023-11-23] MEDS: ASPIRIN 81MG ENTERIC TABLET PO SCH (11:11)
[2023-11-23] MEDS: **hydrALAZINE** 50 MG TAB PO ONE (11:12)
[2023-11-23] MEDS: ATORVASTATIN 20 MG TAB PO ONE (11:12)
[2023-11-23 12:04] VITALS: BP 158/96
== END 2023-11-23 12:50 | disposition home or self-care (01) ==
LOC: M ED 13:08 → M ED INP 13:09 → ENRESERV 20:07 → M PCU 21:48
PROVIDERS: ADMIT Orthopaedic Surgery; ATTEND Orthopaedic Surgery
DX: M25.561 Pain in right knee (principal); M25.461 Effusion, right knee; I16.0 Hypertensive urgency; R74.8 Abnormal levels of other serum enzymes; I13.0 Hypertensive heart and chronic kidney disease with heart failure and stage 1 through stage 4 chronic kidney disease, or unspecified chronic kidney disease; I50.9 Heart failure, unspecified; N18.30 Chronic kidney disease, stage 3 unspecified; I71.23 Aneurysm of the descending thoracic aorta, without rupture; F17.210 Nicotine dependence, cigarettes, uncomplicated; Z98.1 Arthrodesis status; Z90.49 Acquired absence of other specified parts of digestive tract; Z86.79 Personal history of other diseases of the circulatory system; Z79.899 Other long term (current) drug therapy
CPT/HCPCS: 36415; 70450; 71046; 73564; 80048; 82550; 82553; 83735; 84439; 84443; 85025; 85610; 85730; 87631; 93005; 93041; 93971; 94760; 96372; 96374; 96375; 97161; 99285; J1920

== ENCOUNTER → 2023-12-28 | Outpatient (CLI) | payer OTHER ==
[~2023-12-28] MED LIST changes: +ASPI81CH33 PO; +ATOR40TA75 PO; +CARV25TA PO; +HYDR25TA87 PO
== END ==
LOC: M PLAIMG 14:06
PROVIDERS: ATTEND Physician Assistant
DX: S83.200A Bucket-handle tear of unspecified meniscus, current injury, right knee, initial encounter (principal); W18.30XA Fall on same level, unspecified, initial encounter; Y92.009 Unspecified place in unspecified non-institutional (private) residence as the place of occurrence of the external cause

== ENCOUNTER 2024-04-22 06:08 | Emergency (ER) | payer OTHER, SELFPAY ==
[~2024-04-22] VITALS: Ht 190.5 cm; Wt 114.6 kg
[2024-04-22 07:02] LABS: BASO # 0.1 10^3/uL (0.0-0.2); BASO % 0.9 % (0.0-1.0); EOS # 0.3 10^3/uL (0.0-0.5); EOS % 3.1 % (0.0-3.0); HEMOGLOBIN 15.1 g/dl (13.5-17.5); LYMPH # 1.8 10^3/uL (1.5-5.0); LYMPH % 17.9 % (24.0-44.0); MEAN CORPUSCULAR HEMOGLOBIN 29.4 pg (27.0-33.0); MEAN CORPUSCULAR HGB CONC 34.3 g/dl (32.0-36.5); MEAN CORPUSCULAR VOLUME 85.6 fl (80.0-96.0); MONO # 0.9 10^3/uL (0.0-0.8); NEUTROPHILS # 6.7 10^3/uL (1.5-8.5); NEUTROPHILS % 68.2 % (36.0-66.0); PLATELET COUNT, AUTOMATED 192 10^3/uL (150-450); RED BLOOD COUNT 5.14 10^6/uL (4.30-6.10); WHITE BLOOD COUNT 9.8 10^3/uL (4.0-10.0)
[2024-04-22 07:31] LABS: CK-MB VALUE MASS 3.2 NG/ML (<3.6)
[2024-04-22 07:33] LABS: CALCIUM LEVEL 8.8 MG/DL (8.5-10.1); CREATININE FOR GFR 2.07 MG/DL (0.70-1.30); GLOMERULAR FILTRATION RATE 35.7 (>56); MB/CK RELATIVE INDEX 1.66 (< OR =4); POTASSIUM SERUM 3.9 MMOL/L (3.5-5.1)
[2024-04-22] MEDS ORDERED: ISOVUE-370 76% 100ML VIAL As Ordered ONE (07:36)
[2024-04-22] MEDS: ASPIRIN 81MG CHEW TABLET PO ONE (07:49)
[2024-04-22] MEDS: NITROGLYCERIN 0.4MG SUBL TABLET SL PRN (07:52)
[2024-04-22] MEDS: HEPARIN SOD (PORCINE) 5000UNITS/ML 1ML VIAL/SYRINGE IV ONE (08:17)
[2024-04-22] MEDS: HEPARIN DRIP 25,000 UNITS in IV 1 EA IV SCH (08:19)
[2024-04-22 08:22] LABS: CK-MB VALUE MASS 3.6 NG/ML (<3.6)
[2024-04-22 08:25] LABS: MB/CK RELATIVE INDEX 1.89 (< OR =4)
[2024-04-22 08:37] VITALS: BP 187/96
[2024-04-22] MEDS: NITROGLYCERIN 2% OINT 1 GM *U/D* PKT TOP ONE (08:37)
[2024-04-22 09:00] VITALS: BP 177/122; TEMP 98.3; O2SAT 96
== END 2024-04-22 09:01 | disposition short-term general hospital (02) ==
LOC: M ED 06:08
DX: I21.4 Non-ST elevation (NSTEMI) myocardial infarction (principal); I45.81 Long QT syndrome; I11.0 Hypertensive heart disease with heart failure; I50.22 Chronic systolic (congestive) heart failure; F17.210 Nicotine dependence, cigarettes, uncomplicated; Z79.1 Long term (current) use of non-steroidal anti-inflammatories (NSAID); Z79.899 Other long term (current) drug therapy

== ENCOUNTER 2024-07-24 01:05 | Emergency (ER) | payer SELFPAY ==
[~2024-07-24] VITALS: Ht 190.5 cm; Wt 119.7 kg
[2024-07-24 01:13] VITALS: BP 220/146; TEMP 96.7; O2SAT 97
== END 2024-07-24 04:36 | disposition left against medical advice (07) ==
LOC: M ED 01:05
DX: Z53.21 Procedure and treatment not carried out due to patient leaving prior to being seen by health care provider (principal)